=== PATIENT | female | born 1970 | race Caucasian/White ===

== ENCOUNTER 2016-06-08 12:00 | Inpatient (IN) | payer BC ==
[~2016-06-08] VITALS: Ht 170.2 cm; Wt 70.4 kg
--- NOTE | ~2016-06-08 | ECHO ---
Transthoracic Echocardiography Report (TTE) Demographics Patient Name PUSHPA KRUSE Date of Study 06/11/2016 Patient Number [id number] Visit Number [id number] Date of 1970 Room Number G6224 Accession Number [id number] Gender Female Age 45 year(s) Referring Kayode Murry Product Safety Specialist Mandy Henry RVT Physician Physician Interpreting Adry Montelongo Mixer Lever Operator Physician MD Supervising Ordering Physician Kayode Murry MD, MD/P Nurse Stress Beam Builder Conclusions Summary No evidence of atrial septal defect by saline bubble study. Procedure Type of Study TTE procedure:Echo Limited w/ Contrast. Procedure Date Date: 06/11/2016 Start: 02:35 PM Study Location: Inpatient Portable Technical Quality: Fair due to lung interference. Indications:CVA. Patient Status: Routine Signature dtt: Jayda Rider dtd: 06/11/16 1435 Physician Self Edit
--- NOTE | ~2016-06-08 | DS ---
PATIENT'S NAME: PUSHPA KRUSE [facility] AGE: 45 Y [address] ROOM: [address] [address] LOCATION: [facility] ADMIT DATE: 06/08/2016 Discharge Summary DISCHARGE DATE: FAMILY PHYSICIAN: Mague Moran MD ATTENDING PHYSICIAN: Aiden Butt FINAL DIAGNOSES: 1. Cerebrovascular accident with right hemiparesis and left homonymous hemianopsia. 2. Hypercoagulable state secondary to ovarian cancer, positive antiphospholipid antibody. 3. Pulmonary embolism. 4. Right lower extremity deep venous thrombosis. 5. Clear cell ovarian cancer, stage III. 6. New left pleural effusion. 7. Thrombocytopenia. Please see the history and physical dictated by Dr. Butt for details of admission. LABORATORY DATA: On admission, sodium 137, most prior to discharge 138; potassium on admission 4.3, most prior to discharge 4.1; BUN on admission was 14, most prior to discharge 10; creatinine on admission 0.8, most prior to discharge 0.8. Her liver enzymes were normal. LDH drawn on the was 391. Magnesium was 2.2. Cholesterol 181, triglycerides 131, HDL 30. White blood cell count on admission was 9.1 with a hemoglobin of 11, hematocrit 32.3, and platelet count 81. The thrombocytopenia resolved. Platelet count most prior to discharge is 169. D-dimer was 28.52 on the . Sedimentation rate on the was 76. Protime on admission was 11.6 with an INR of 1.1. Her protein C activity and protein C levels, protein S levels were normal. Leiden factor V was negative. The lupus anticoagulant mixing studies were suggestive of a circulating anticoagulant. Her C- and P-ANCA were negative. RADIOLOGY STUDIES: MR venogram protocol was normal. An MRI of her brain on admission did show she had extensive multifocal infarcts bilaterally in the cerebellar and cerebral hemispheres. MRA was suggestive of a small area of narrowing in the distal MCA. There was a cerebral angiogram and was without any nodularity or beading. There was absent left SENIOR ADMINISTRATIVE ASSISTANT circulation. MRI of the brain to reassess the stroke showed overall stability. MRI of the cervical spinal cord did not show any nerve impingement. Chest tomogram did not show any evidence of brachial plexopathy. There, we did see a new left pleural effusion. CTA of the neck did not show any occlusion that was suggestive of PE. This was followed up with a spiral-cut CT with PE protocol, which showed that she had multiple pulmonary emboli, predominantly in the right side. CT scan of the head after initiation of anticoagulation did not show any evidence PATIENT'S NAME: PUSHPA KRUSE [facility] AGE: 45 Y [address] ROOM: [place] [address] LOCATION: [facility] ADMIT DATE: 06/08/2016 Discharge Summary DISCHARGE DATE: FAMILY PHYSICIAN: Mague Moran MD ATTENDING PHYSICIAN: Aiden Butt of a hemorrhagic conversion. Cardiovascular studies: An echocardiogram done on admission showed her EF was 60% to 65%. A JINNY done did not show any evidence of intracardiac vegetation. No evidence of a patent PFO. Bubble study on this was negative. Doppler study of her bilateral lower extremities did show that she had acute DVT of popliteal, posterior tibial, and peroneal veins on the right. HOSPITAL COURSE: The patient was admitted to the hospital after presenting with stroke-like symptoms. She was placed on the non-tPA stroke protocol. Dr. Pedraza was asked to see the patient from a neurologic standpoint. Because of the visual defects, Ophthalmology was asked to see her. She did have stage III clear cell carcinoma of the ovary. Dr. Cory Garcia was asked to follow along from the hematologic standpoint. A JINNY was ordered because of the presentation of her stroke. She was also evaluated for hypercoagulable state. It was concerning that she had multifocal infarcts, so there was concern that she was showering emboli from somewhere. Dr. Pruett did see her from an ophthalmologic standpoint and at this time just recommended that we help prevent dry eyes. Dr. Vera did see her for possible rehab, and he did feel when she was stable that we could proceed to rehab. She was started on an aspirin. Because of the atypical presentation, Dr. Pedraza did feel that we should do an angiogram. This was done by the interventional radiologist on June 10. She tolerated it without any abnormality. Dr. Bonner was asked to see the patient at that point and did evaluate her for some further studies to follow up, to make sure the stroke was stable, look at her brachial plexus to make sure there was nothing there causing issue with her right arm. The studies there did show that she had a pulmonary embolism. This was followed up with a spiral-cut CT scan and a venous Doppler was obtained. We did ask Cardiology to repeat the bubble study once again, which was negative. At this time, we did have long discussion about what would be best. There was concern for hemorrhagic conversion of her stroke with initiation of anticoagulation, but with the PE and DVT, it was felt that there was more indication to anticoagulate her. We did ask Dr. Taveras to consider her for an IVC filter, but the ultimate decision was that we are going to treat her with Lovenox 1 mg/kg. It was very clearly stated to her the risks and benefits of using the anticoagulation and not using the anticoagulation. The family did agree to proceed. A followup CT was done after initiation, which once again showed stability. Neurologically, her symptoms did start to improve. She got more movement in her arm. Also, throughout this, we did find a new left pleural effusion. There was concern that this was a malignant effusion. She did have a thoracentesis by Radiology on June 15. It was in fact transudative and the studies were sent for cytology. The initial cytology returned negative. It was felt that she would benefit significantly from inpatient rehab and a bed became available for transfer to rehab on June 17. DISCHARGE INSTRUCTIONS: Have a regular diet. Weightbearing as tolerated PT, PATIENT'S NAME: PUSHPA KRUSE [facility] AGE: 45 Y [address] ROOM: [place] [address] LOCATION: [facility] ADMIT DATE: 06/08/2016 Discharge Summary DISCHARGE DATE: FAMILY PHYSICIAN: Mague Moran MD ATTENDING PHYSICIAN: Aiden Butt OT, and Speech Therapy to see. MEDICATIONS: 1. Artificial tears 1 drop both eyes 4 times daily. 2. Aspirin 325 mg daily. 3. Lipitor 80 mg daily. 4. Multivitamin daily. 5. Protonix 40 mg daily. 6. Senna 8.6 to 17.2 mg p.o. every night at bedtime. 7. MiraLAX 17 g daily, hold for loose stools. 8. Tylenol 500 to 1000 mg as needed for pain, temp, insomnia. 9. Benadryl 25 mg as needed for insomnia. 10. Tylenol 650 mg every 4 hours as needed. 11. Dulcolax 10 mg suppository per rectum as needed for constipation. 12. Claritin-D 1 tablet daily as needed for allergy symptoms. 13. Milk of magnesia 30 mL as needed for constipation. 14. Percocet 5/325 mg 1 to 2 every 4 hours as needed for moderate pain. 15. Lovenox 1 mg/kg subcu twice daily. PROGNOSIS: Overall prognosis at discharge was fair. GEO TIDWELL MD LAW/modl /[id number] CC: MD Magaly Prather MD d: 06/17/16 0835 t: 06/17/16 1653, DISCHARGE SUMMARY
--- NOTE | ~2016-06-08 | ENPV ---
Vascular Lower Extremities DVT Study Procedure Demographics Patient Name PUSHPA KRUSE Date of Study 06/11/2016 Patient Number [id number] Gender Female Date of 1970 Age 45 Visit Number [id number] Height 67 Accession Number [id number] Weight 148 Referring Kayode Gill MD Physician Physician Physician Ordering Physician Kayode Murry MD Sales Systems Engineer Professor Of Literacy Mandy Henry [facility] Conclusions Summary There is acute deep vein thrombosis in the right popliteal, posterior tibial and peroneal vein(s). No evidence of deep vein thrombosis or superficial thrombophlebitis in the left lower extremity. The right common femoral vein was not well visualized, because of angio incision. Procedure Type of Study: Veins:Lower Extremities DVT Study, Venous Duplex Lower Extremity Bilateral. Indications for Study:Pulmonary embolism. Patient Status:Routine. Study Location:Inpatient Portable. Technical Quality:Adequate visualization. - Preliminary reported to:Dr. Headley. Velocities are measured in cm/s ; Diameters are measured in cm Right Lower Extremities DVT Study Measurements Right 2D and Doppler Measurements + + + + +------+------+ + !Location !Visualized!Compressibility!Thrombosis!Signal!Reflux!Reflux ! ! ! ! ! ! ! !(sec) ! + + + + +------+------+ + !GSV Thigh !Yes !Yes !None !Phasic! ! ! + + + + +------+------+ + !Common !Yes !Yes !None !Phasic! ! ! !Femoral ! ! ! ! ! ! ! + + + + +------+------+ + !Prox !Yes !Yes !None !Phasic! ! ! !Femoral ! ! ! ! ! ! ! + + + + +------+------+ + !Mid Femoral!Yes !Yes !None !Phasic! ! ! + + + + +------+------+ + !Dist !Yes !Yes !None !Phasic! ! ! !Femoral ! ! ! ! ! ! ! + + + + +------+------+ + !Popliteal !Yes !Yes !None !Phasic! ! ! + + + + +------+------+ + !Gastroc !Yes !Yes !None !Phasic! ! ! + + + + +------+------+ + !PTV !Yes !Yes !None !Phasic! ! ! + + + + +------+------+ + !Peroneal !Yes !Yes !None !Phasic! ! ! + + + + +------+------+ + Left Lower Extremities DVT Study Measurements Left 2D and Doppler Measurements + + + + +------+------+ + !Location !Visualized!Compressibility!Thrombosis!Signal!Reflux!Reflux ! ! ! ! ! ! ! !(sec) ! + + + + +------+------+ + !GSV Thigh !Yes !Yes !None !Phasic! ! ! + + + + +------+------+ + !Common !Yes !Yes !None !Phasic! ! ! !Femoral ! ! ! ! ! ! ! + + + + +------+------+ + !Prox !Yes !Yes !None !Phasic! ! ! !Femoral ! ! ! ! ! ! ! + + + + +------+------+ + !Mid Femoral!Yes !Yes !None !Phasic! ! ! + + + + +------+------+ + !Dist !Yes !Yes !None !Phasic! ! ! !Femoral ! ! ! ! ! ! ! + + + + +------+------+ + !Popliteal !Yes !Yes !None !Phasic! ! ! + + + + +------+------+ + !Gastroc !Yes !Yes !None !Phasic! ! ! + + + + +------+------+ + !PTV !Yes !Yes !None !Phasic! ! ! + + + + +------+------+ + !Peroneal !Yes !Yes !None !Phasic! ! ! + + + + +------+------+ + Impressions Right Impression Common femoral vein was not imaged due to angio incision. Superficial femoral vein is widely patent. There is acute DVT in the popliteal, posterior tibial and peroneal veins. Left Impression Common femoral, superficial femoral, and popliteal veins widely patent. Calf veins found to be patent by color flow mapping. Signature dtt: OSCAR SIMON dtd: 06/11/16 1416 Physician Self Edit
--- NOTE | ~2016-06-08 | CON ---
PATIENT'S NAME: PUSHPA WOODWARD [facility] AGE: 45 Y [address] ROOM: [id number] [place], [place] [address] LOCATION: [facility] ADMIT DATE: 06/08/2016 Consultation DISCHARGE DATE: FAMILY PHYSICIAN: Mague Moran MD ATTENDING PHYSICIAN: SIL ALMAZAN REFERRING PHYSICIAN: Vance Bermeo MD Consult to Dr. Almazan. HISTORY OF PRESENT ILLNESS: Pushpa Woodward is a 45-year-old woman with uncharacterized right hemiparesis and impairment of right-sided peripheral vision. She is under treatment for clear cell carcinoma of the ovary. 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 She was in her normal state of health until day 8 of her therapy. She lived in [place], [place] with her . 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 She had no practical limits. On day 8 of her therapy, the patient developed right-sided peripheral vision difficulties. She could not see one of her fourth graders. She reported to the emergency room in [place], [place]. Blood work was obtained. Fluids were administered. Her vision improved. Ondansetron was given for mild nausea. The patient regained her performance status. She was still able to walk a mile twice a day. She was just troubled by clear nasal discharge. She did acknowledge on day 6 she vomited once and on day 7 she had been nauseated. On day 9, the patient's peripheral visual difficulty resolved, but her vision was somewhat annamarie to looking out a "frosted window." This has gradually improved in the last few days. On day 11, the patient developed expressive aphasia, which was transient. Throughout the evening, she had difficulty moving her right arm. She had no difficulty moving her right leg and had led to paresthesias. She had episode of urinary incontinence, which was highly irregular. She put up with the hemiparesis overnight. When the right hemiparesis failed to resolve, she visited with her . Her arranged for her evaluation in the [place] [facility]. In the [place] [facility] a general chemical profile was obtained. The profile was unremarkable except for a slightly elevated alkaline phosphatase. A CAT scan of the head was performed without contrast. It revealed multifocal patchy low attenuation within bilateral occipital lobes and the left cerebellar hemisphere, which was nonspecific, compatible with multiple acute infarcts or posterior reversible encephalopathy syndrome. MRI with and PATIENT'S NAME: PUSHPA WOODWARD [facility] AGE: 45 Y [address] ROOM: [id number] [place], [place] [address] LOCATION: [facility] ADMIT DATE: 06/08/2016 Consultation DISCHARGE DATE: FAMILY PHYSICIAN: Mague Moran MD ATTENDING PHYSICIAN: SIL ALMAZAN without IV contrast was recommended. The patient was transferred to Dr. Almazan's hospitalist service at [facility]. White count is 7000 with 79% neutrophils, hemoglobin 9.9, MCV is 93, and the platelets are 80,000. The INR was 1.1. The PTT is 27. The ESR is 76 mm/hr. The antithrombin III is 103% of activity. CMS here is also remarkable except for slightly low albumin of 3.1 g/dL and a slightly elevated AST and ALT of 54 and 81 International Units/L respectively. The MRI of the brain revealed multiple bilateral areas of diffusion restriction, which do not enhance, consistent with an acute or subacute ischemic infarct in the cerebral and cerebellar hemispheres. There were multiple patchy areas of infarct in the cerebellar hemispheres more prominent on the left than the right and a focal infarct in the left posterior mid brain. There was a large area of infarct 7 cm from front to back present at the right parietotemporal junction. There was [id number] overall patchy infarct in the bilateral occipital lobes. To a lesser extent, there were multiple patchy areas of subcortical and cortical infarcts in the parietal and frontal lobes. On the right side, the posterior insular cortex was involved. On the left side, there was a small infarct at the posterior external capsule and the small infarct of the posterior lateral left thalamus. There was no hemorrhage, mass effect, or hydrocephalus and the orbits and sinuses were normal. A brain magnetic resonance angiogram of the head without contrast revealed small areas of narrowing within the distal middle cerebral artery branches in the sylvian fissure on both sides. There was absence of flow related signal within the distal left posterior circulating area. The multifocal nature coupled with the brain MRI raised the possibility of vasculitis. The lupus anticoagulant, anticardiolipin antibodies, anti-beta-2 glycoprotein, protein C, protein S, factor V Leiden levels are currently pending. Mrs. Woodward is currently under therapy for clear cell carcinoma of the ovary, but has no personal or family history of thrombophilia. Mrs. Woodward was first symptomatic with her ovarian cancer in early October 2015 with abdominal pain and fever. She reported to the clinic in [place] and saw Maritza Miller PA-C. A CBC and BMP were unremarkable. A CT scan of the abdomen and pelvis to rule out appendicitis was performed and revealed a complex cystic-appearing structure and peripheral calcification on the right side. There was small free fluid throughout the right adnexa. A pelvic ultrasound was scheduled and the patient saw Dr. April Buckley in consultation on 10/30/2015. The pelvic ultrasound revealed a normal uterus, but the right ovary was 5.9 cm with solid and cystic components on the transvaginal ultrasound. The physical exam including pelvic exam was not revealing. A CA-125 was 55 U/L. Dr. Buckley discussed the differential PATIENT'S NAME: PUSHPA WOODWARD [facility] AGE: 45 Y [address] ROOM: [place] [address] LOCATION: [facility] ADMIT DATE: 06/08/2016 Consultation DISCHARGE DATE: FAMILY PHYSICIAN: Mague Moran MD ATTENDING PHYSICIAN: SIL ALMAZAN and on 11/05/2015, performed removal of the ovary. The uterus was normal. The left tube and ovary were unremarkable. The right fallopian tube was unremarkable. The right ovarian mass was 6 cm with a large amount of chocolate colored fluid in the solid component. There was no omental studding, ascites and palpation of the liver was unremarkable. The pathologist concluded the patient had a FIGO grade 3/3 clear cell carcinoma in the right ovary. In the fallopian tube, there was small focal subserosal endometriosis. On 11/18/2015, the patient saw Dr[facility] Brandie [facility]. Chou weighed the pros and cons of surgery or neoadjuvant chemotherapy followed by a definitive surgical approach. Dr. Chou recommended neoadjuvant chemotherapy. The patient saw a Dr. Princess Cosme in Medical Oncology consultation. Dr. Cosme recommended and implemented a program of neoadjuvant chemotherapy. The patient received paclitaxel 175 mg/m2 plus carboplatin AUC 6 IV every 3 weeks for 6 cycles. The first cycle was administered 11/29/2015 and the last on 03/26/2016. The patient saw Dr. Chou again following administration of the neoadjuvant chemotherapy. Dr. Chou reviewed her situation on 04/17/2016 and reviewed a CAT scan of the abdomen and pelvis and chest, which revealed a 2.3 x 1.5 cm cystic lesion in the right adnexa at the site of the previous mass, but was otherwise unremarkable. The CA-[address] Chou recommended, and then performed, on 04/28/2016, an exploratory laparotomy, total abdominal hysterectomy, left salpingo-oophorectomy, right tumor resection, right ureterolysis and bilateral pelvic and paraaortic lymph node dissection and omentectomy. The pathology revealed the tumor excised from the right round ligament contained clear cell carcinoma. The left tube and ovary had surface and focal parenchymal involvement by clear cell carcinoma. The fallopian tube had no tumor. The uterus and cervix were benign. The omentum had small microscopic foci of clear cell carcinoma. In the lymph nodes, there were 7 negative right pelvic lymph nodes and 16 negative left pelvic lymph nodes, and 1/3 of the paraaortic lymph nodes were positive for metastatic clear cell carcinoma. Dr. Chou and Dr. Cosme presumed the goals were palliative at this point, and acknowledged this was bad news. Dr. Cosme weighed the pros and cons of salvage palliative chemotherapy and on 05/28/2016, initiated the first cycle of liposomal doxorubicin. The patient received palonosetron 0.25 mg and dexamethasone 20 mg IV prior to the therapy. PAST MEDICAL HISTORY: Active medical problems, chronic and diagnosed. 1. Cholinesterase deficiency. A cousin developed postoperative complications due to this and so family members were tested and the PATIENT'S NAME: PUSHPA WOODWARD [facility] AGE: 45 Y [address] ROOM: [place] [address] LOCATION: [facility] ADMIT DATE: 06/08/2016 Consultation DISCHARGE DATE: FAMILY PHYSICIAN: Mague Moran MD ATTENDING PHYSICIAN: SIL ALMAZAN patient has a cholinesterase deficiency. 2. Stage III clear cell carcinoma of the ovary as noted above. PAST SURGICAL HISTORY: Acute medical illnesses (resolved), past surgeries, injuries: 1. 1981, right forearm fracture. 2. 2004 - left breast biopsy. 3. G0, P0, AB0. MEDICATIONS: Upon admission: 1. Loratadine/pseudoephedrine 1 tab p.o. daily. 2. Multivitamins daily. 3. Pantoprazole 40 mg daily p.o. daily. 4. Senna 8.6 mg p.r.n. 5. APAP/diphenhydramine. The patient denies the use of herbals or alternative. ADVERSE REACTIONS TO MEDICATIONS, TRANSFUSIONS, ALLERGIES: 1. Clindamycin was associated with dyspnea. 2. The patient has never had blood transfusions. Tobacco none. Alcohol, 2 alcoholic beverages a month. Caffeine 3 to 4 cups of ice tea a day, perhaps 1 soda a day as well. FAMILY HISTORY: Negative for thrombophilia, really negative for cancer. The patient was tested for the BRCA mutation which was not found, but had chek2 mutation, significance undetermined. The maternal aunt did of cancer. SOCIAL HISTORY: The patient was born and raised in [place], [place]. She graduated from [employer]. 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 The patient has no children. She is . Her is a contractor. They attend the [employer]. REVIEW OF SYMPTOMS: Negative other than those noted in the history of the present illness. PHYSICAL EXAMINATION: VITAL SIGNS: Pulse 92 and regular, blood pressure 120/75, respiratory rate 14, temperature 98.4. Height 67 inches, weight 67.4 kg (149 pounds). BMI 23.2 kg/m2. GENERAL: Well-developed, well-nourished 45-year-old female, in no PATIENT'S NAME: PUSHPA WOODWARD [facility] AGE: 45 Y [address] ROOM: [address] [address] LOCATION: [facility] ADMIT DATE: 06/08/2016 Consultation DISCHARGE DATE: FAMILY PHYSICIAN: Mague Moran MD ATTENDING PHYSICIAN: SIL ALMAZAN acute distress. HEENT: Unremarkable. Lymph nodes not palpable. NECK: Without JVD or carotid bruits. SKIN: Unremarkable. BREASTS: Not examined as the family was in the room. CHEST: Clear. Chest wall left implanted vascular access device. CV: Regular rhythm. No murmurs, bruits or adventitious sounds. ABDOMEN: Well-healed surgical scar. No masses, tenderness, or organomegaly. GENITALIA AND RECTAL: Not examined. EXTREMITIES: Without peripheral edema. Pulses 2+ throughout. NEUROLOGIC: Cranial nerves 2 through 12 intact. Deep tendon reflexes 1+ throughout. Strength 5+ on the left side. The right arm strength is 3/5. Babinski is plantar on the left side and upgoing on the right. Visual pereira, the patient does appear to have difficulty with left-sided homonymous hemianopia. IMPRESSION: A 45-year-old woman with acute onset of left homonymous hemianopia and right arm weakness associated with expressive aphasia, positive left-sided Babinski and no focal lesions on noncontrasted CAT scan, but multiple infarcts on MRI of the brain. 1. The patient has a history of clear cell carcinoma of the right ovary, status post right oophorectomy, neoadjuvant chemotherapy, and then palliative procedure with PAWAN and left unilateral salpingo-oophorectomy on 04/28/2016 (performed with curative intent initially). She is currently on day 12 of her first cycle of pegylated liposomal doxorubicin. 2. We have ruled out [employer] metastases and a hemorrhagic CVA and a simple ischemic CVA. The presentation is not consistent with [employer] paraneoplastic syndromes I have seen described. 3. The echocardiogram revealed no evidence of a patent foramen ovale, atrial or ventricular septal defect or vegetations. There is no clear etiology, at present, in this 45-year-old woman, who has been disabled by this incident. 4. Nonbacterial thrombotic endocarditis must still be possible. False negatives have occurred, presumably if vegetations of already migrated en danielle to the PLUMBING [employer]OR. Sometimes NBTE is an autopsy diagnosis with a normal transthoracic echocardiogram. That being said, it seems unsatisfactory to conclude the patient has nonbacterial thrombotic endocarditis without more conclusive evidence. 5. Vasculitides have been associated with ovarian cancer. However, this is generally a cutaneous small vessel vasculitis. RECOMMENDATIONS: Diagnostic: PATIENT'S NAME: PUSHPA WOODWARD [facility] AGE: 45 Y [address] ROOM: [place] [address] LOCATION: [facility] ADMIT DATE: 06/08/2016 Consultation DISCHARGE DATE: FAMILY PHYSICIAN: Mague Moran MD ATTENDING PHYSICIAN: SIL ALMAZAN 1. Blood cultures. 2. MAUREEN. 3. Izus-nvvg-NH glycoprotein in addition to the lupus anticoagulant and anticardiolipin antibodies. TREATMENT: 1. Aspirin initially and consider full anticoagulation when the patient would no longer be at risk of converting this ischemic infarct to a hemorrhage. PATIENT EDUCATION: 1. Acknowledged it is not clear why she had this episode, but discussed the differential diagnosis. Made the point we do not think this is related to her antineoplastic agents or other medications. We will be interested in the neurologist's opinion. VANCE BERMEO MD GKB/modl /[id number] CC: MD April Stanton MD Jeffery W McKinley, DO d: 06/10/16 0154 t: 06/10/16 1644, CONSULTATION REPORT
--- NOTE | ~2016-06-08 | CON ---
PATIENT'S NAME: PUSHPA KRUSE [facility] AGE: 45 Y [address] ROOM: [address] [address] LOCATION: [facility] ADMIT DATE: 06/08/2016 Consultation DISCHARGE DATE: FAMILY PHYSICIAN: Mague Moran MD ATTENDING PHYSICIAN: SIL ALMAZAN REFERRING PHYSICIAN: Cory Garcia MD Consult for Dr. Almazan. This pleasant 45-year-old lady is referred for rehab evaluation for [facility] ERP admission, admitted on 06/08/2016 with blurred vision, right hemianopsia of few days' duration and getting progressively worse with on and off periods of getting a little bit better as per her description. She eventually had weakness of the right upper extremity and was unable to express, bring out words, and was brought to emergency room and was admitted for further evaluation and management. Past history of significance right ovarian cancer with metastasis to the left ovary and omental lymph nodes, status post bilateral salpingo-oophorectomy and total abdominal hysterectomy. Diagnosis was done in October 2015. She has received chemotherapy, but no radiation treatment received. One chemotherapy every 4-5 weeks. Her main blurred vision is on the right side, both eyes. She felt right upper extremity weakness, at the present time it is flaccid. Right lower extremity is moving fairly nicely with good muscle strength, however, she is not very well coordinated with it. She is a little bit now able to talk, however at 1 time, she was having difficulty with expressive language. She is slow in her expression but proper. She was seen in outside facility where a CT scan reported as patchy low attenuation within bilateral occipital lobes and left cerebellar hemisphere. MRI showed multifocal extensive infarcts bilaterally in cerebellar hemispheres and possibly vesiculitis was put forward as an alternative diagnosis. Now, she is alert, oriented, slow, but follows instructions well. Can talk. Speech is clear, but a little bit slow and she is still having difficulty with the right hemianopsia. She has visual cut on the right side, visual neglect, right side upper extremity is flaccid at the present time. She has good bowel and bladder control and she is saturating at room air. Denied any pain and/or headaches. PATIENT'S NAME: PUSHPA KRUSE [facility] AGE: 45 Y [address] ROOM: [id number] [place], [place] [address] LOCATION: [facility] ADMIT DATE: 06/08/2016 Consultation DISCHARGE DATE: FAMILY PHYSICIAN: Mague Moran MD ATTENDING PHYSICIAN: SIL ALMAZAN No shortness of breath at the present time and is comfortable. Can swallow without difficulty both solids and fluids. MEDICATIONS: She is on the following medications: 1. Artificial tears. 2. Lipitor. 3. Multivitamin. 4. NaCl 0.9%. 5. Tylenol. 6. Senna. 7. Claritin D. 8. Protonix. 9. Aspirin. 10. Lovenox. She transfers with contact guard assistance and is at risk of falling. She can ambulate up to 80 feet with minimum assistance with cuing to attend to the right side. I feel that this lady would benefit from intensive rehab for about 2-3 weeks aiming to discharge home at [facility]. Please see the orders at the present time for PT, OT, and speech. Thank you for this referral. I did discuss all these with her and her , they verbalized understanding and in agreement. KARIE HINOJOSA MD WMS/modl /[id number] d: 06/09/16 2328 t: 06/10/16 0821, CONSULTATION REPORT
--- NOTE | ~2016-06-08 | CON ---
PATIENT'S NAME: PUSHPA KRUSE [facility] AGE: 45 Y [address] ROOM: [address] [place] [id number] LOCATION: T ADMIT DATE: 06/08/2016 Consultation DISCHARGE DATE: FAMILY PHYSICIAN: PHYSICIAN, UNKNOWN ATTENDING PHYSICIAN: SIL ALMAZAN DATE OF CONSULTATION: 06/08/2016 REFERRING PHYSICIAN: Cory Garcia MD NEUROLOGY CONSULTATION. REASON FOR CONSULTATION: The patient was seen on neurologic consultation at 9:30 p.m. on June 08, 2016, at the request of Dr. Almazan, the hospitalist. HISTORY OF PRESENT ILLNESS: The patient was transferred here from [place], [place], this evening. She is a 45-year-old female patient, who previously was healthy until she presented with abdominal pain back in October of 2015. Workup for her persistent abdominal pain discovered an ovarian tumor mass, which required surgical resection of one ovary. 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 Subsequent to the discovery of this mass and chemotherapy, the patient did have recurrence of tumor in the other ovary, and this also had to be removed. Over the course of the next few months, it was found that there was spread of the ovarian mass throughout the omentum, and she continued with rounds of chemotherapy up until fairly recently. Throughout the whole in the past few months, there have been no systemic issues involving any deep vein thrombosis or other regional clots. She had one time been on Lovenox for DVT prophylaxis but recently had been off the medication. It has been noted that she presents here with a low platelet count into the 80s range, and it is believed that she may have had some low platelet count for quite sometime. The patient initially presented to the [facility] back on about 4 days ago. At that time, she was complaining about a bit of some mild nauseousness with perhaps a bit of peripheral vision loss with some minor blurriness. Peripheral vision loss seemed to have been more on the right side of her visual field but did seem to be a bit also bilaterally. Apparently, they believed that she was having some dehydration, and they gave her fluids as well as Zofran for some mild nauseousness, and the patient was sent home. Apparently, at the hospital there, she was conversing well and really was not having any other major issues such as headache, vomiting, certainly was not having any weakness of the extremities. I am not aware if the patient had a CAT scan of the brain at that time. 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 However, this morning at 6:00 a.m. upon getting up to walk around, she noted that she had weakness in her right upper extremity. Right upper extremity was fairly flaccid. Also noted was some worsening of PATIENT'S NAME: PUSHPA KRUSE [facility] AGE: 45 Y [address] ROOM: [address] [address] LOCATION: [facility] ADMIT DATE: 06/08/2016 Consultation DISCHARGE DATE: FAMILY PHYSICIAN: PHYSICIAN, UNKNOWN ATTENDING PHYSICIAN: SIL ALMAZAN her speech where she presented now with a bit of slurring of her speech and possibly even some difficulty with word finding. She was taken back to [facility] where she was evaluated there with a CAT scan. The CAT scan did reveal evidence of bilateral strokes into the TORPEDO MAN territory but also evidence of multifocal strokes in both the left and the right hemispheres, and into the anterior and posterior circulations, even including the cerebellum. The patient was thus transferred here for further workup. We immediately had the patient brought in for an MRI of the brain as well as an MRA. Furthermore, we added an MR venogram to rule out any possibility of venous sinus thrombosis as the history of ovarian cancer was known to us, and we want to rule out the possibility of venous cortical clots. The result of the MRV did not reveal any venous cortical sinus thrombosis; however, the MRI backed up the CAT scan at [facility] showing both left and right hemispheric strokes with the larger stroke actually being in the right TORPEDO MAN territory. The strokes were noted to summon more moderate sizes into both hemispheres, and with even strokes noted with even diffusion-weighted imaging findings seen in the cerebellar hemispheres, thalami, as well as some small subcortical strokes were seen in the bilateral hemispheres, both cortical and subcortical. MRA did show multifocal small occlusions of vessels of arterial vessels, mostly in the distal nature to them with some, but one or two appeared to be more proximal in nature. Due to the nature of these MRA findings, the radiologist suggested the possibility of vasculitis. The differential certainly at this point in time would include vasculitis. However, with further discussions with myself and the hospitalist, largely I recommended, before the patient was to be considered for vasculitic type process that, we would rule out that these findings are associated with a cardioembolic feature knowing that the patient has a clear cell ovarian cancer, and the nature of clear cell ovarian cancer becoming hematogenous and possibly causing marantic endocarditis, the possibility of these multifocal strokes with many of them being fairly large would be coming from an origin of vegetations on the valves. Thus, at this point in time, we have consulted Cardiology, and there will be plans tomorrow for transesophageal echocardiogram. Furthermore in the workup, we will do full panel to give us some evidence for hypercoagulable state, though certainly, the patient with metastatic ovarian cancer, would be known to be hypercoagulable, but laboratory results have been ordered for protein C, protein S, anti-phospholipid antibodies including lupus anticoagulant and anticardiolipin as well as labs for factor V Leiden, antithrombin III, and some basic vasculitic labs including ESR, CRP, and P-ANCA. PRIOR MEDICAL HISTORY: No prior medical history of significance other than the diagnosis of ovarian cancer back in October of 2015. She has received [place]-based chemotherapy of a few rounds up until recently. The patient has no history of DVTs or systemic thrombotic events. PATIENT'S NAME: PUSHPA KRUSE [facility] AGE: 45 Y [address] 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 She does not smoke cigarettes. She does not use illicit drugs. CURRENT MEDICATIONS: None, though I believe that she was on subcu Lovenox for DVT treatment up until recently. My history is not consistent with any ovarian cancer or breast cancer in brief discussions with the patient. REVIEW OF SYSTEMS: The patient had about 4 to 5 days of variable blurriness of her vision with likely field cut, consistent with the findings of bihemispheric strokes into the TORPEDO MAN territory, as well as new strokes, particularly into the left hemisphere, associated with new onset of right hemiparesis, affecting the right upper extremity only. The patient also had some slurring of speech this evening. This seems to be resolved at this time. NEUROLOGIC EXAMINATION: CRANIAL NERVES: Pupils are equal and reactive to light and accommodation. Extraocular muscles intact. There is no facial droop. There is slight slowing of her speech as it is very variable. She seems to be worsened when she is a bit tired. She has some minor word-finding deficits, but naming of objects and parts of objects seem to be intact. MOTOR: Her motor power in her left upper and lower extremities, full power in the right lower extremity, also full power in the right upper extremity, there is flaccid paralysis of her limb. She can elevate the limb about 5 seconds above the bed, but it drops easily. The grade of power is around 3/5 presently. Power in dorsiflexion plantar flexion, eversion, inversion of the feet are all normal. The patient was not ambulated currently. SENSORY: Completely intact. Cortical stimulation to right and left discrimination is completely intact. Sensory exam to light and sharp touch is intact. IMPRESSION: The patient presents with a few days of visual obscuration with a variable periods of a field cut, both right and left. There has been some improvement and some worsening of her field cut complaints over the past 48 hours. She denied any headaches over the past few days. There has been no nauseousness. No vomiting. No sensory loss. She did not have any focal motor weakness in total. She presented this morning until she developed a focal arm weakness with flaccid paralysis. Her lower extremity power remained intact. The patient was initially sent back to [facility] where a CAT scan showed evidence of multifocal bihemispheric strokes, and she was sent here for further workup. PATIENT'S NAME: PUSHPA KRUSE [facility] AGE: 45 Y [address] ROOM: [place] [address] LOCATION: [facility] ADMIT DATE: 06/08/2016 Consultation DISCHARGE DATE: FAMILY PHYSICIAN: PHYSICIAN, DALTON ATTENDING PHYSICIAN: SIL ALMAZAN Based upon the findings of fairly mixed sizes of strokes, we will obtain a transesophageal echocardiogram tomorrow. We will also give the patient one treatment dose of Lovenox 1 mg/kg due to the fact that this is a possibly an active type process from embolization. We have no proof currently, however, until we do have an echocardiogram to prove this, nonetheless, the nature of clear cell ovarian cancer has close association with marantic endocarditis, seems to be a leading issue here for embolic strokes. I do believe that vasculitis would be a secondary consideration, but this would seem to be less of a chance due to the nature of these being very mixed size strokes and in multiple large territory vessels. Certainly, the nature of the beading of some of the vessels seen in the distal portions of these vessels may fit that pattern. Nonetheless, the patient does not have more typical presentation of vasculitis as such as change in mental status, seizure presentation. I had discussions with multiple family members as well as the patient. I discussed the use of the anticoagulant this evening, even in the setting of known of the known low level of platelet count above 50, but certainly, the possibility that the anticoagulation would be a risk for bleeding. Nonetheless, the pattern is suggestive of multifocal embolic strokes. The ultimate treatment if this were proven to be marantic endocarditis would ultimately be anticoagulation to stabilize the situations of new emboli to not form. The patient overnight will be receiving normal saline IV fluids at 150 mL an hour to maintain intravascular perfusion of the brain. After the first dose of Lovenox, we will hold the treatment for preparation for transesophageal echocardiogram. The patient will be n.p.o. tonight. CLARITA LARSON MD JRM/modl /[id number] d: 06/09/16 0242 t: 06/23/16 1534, CONSULTATION REPORT
--- NOTE | ~2016-06-08 | ECHO ---
Transesophageal Echocardiography Report (JINNY) Demographics Patient Name PUSHPA KRUSE Date of Study 06/09/2016 Patient Number [id number] Visit Number [id number] Date of 1970 Room Number G6224 [facility] [id number] Gender Female Number Age 45 year(s) Referring Miryam Commercial Truck Driver Maria M Doss RDCS, Physician Martell RVKera Physician Interpreting Miryam Moura Chummer Physician Supervising Ordering Miryam Moura MD/LEE Physician Nurse Stress Silver Steward Conclusions Summary Transesophageal echocardiogram was done under general anesthesia without difficult probe placement . The estimated left ventricular ejection fraction is 60-65%. There is moderate plaque seen in the descending thoracic aorta. No obvious intracardiac vegetation There is no LA or LA appendage thrombus or spontaneous contrast. Catheter seen in the right atrium. Normal mitral valve structure and function. Mild mitral regurgitation by color Doppler. Normal appearing tricuspid valve. Mild tricuspid regurgitation by color Doppler. Procedure Type of Study JINNY procedure Procedure Date Date: 06/09/2016 Start: 09:46 AM Study Location: Inpatient Portable Technical Quality: Adequate visualization Indications:CVA. Appropriate Use Criteria: 9 Patient Status: Routine HR: 92 bpm BP: 131/71 mmHg O2 Saturation: 92 % JINNY Performed By: the attending and the manager marketing sales Type of Anesthesia: Moderate sedation Findings Left Ventricle The left ventricle is normal in size . Right Ventricle Normal right ventricular size and function. Left Atrium There is no LA or LA appendage thrombus or spontaneous contrast. Right Atrium Catheter seen in the right atrium. Mitral Valve Normal mitral valve structure and function. Mild mitral regurgitation by color Doppler. Aortic Valve Normal aortic valve structure and function. Tricuspid Valve Normal appearing tricuspid valve. Mild tricuspid regurgitation by color Doppler. Pulmonic Valve Normal pulmonic valve structure and function. Miscellaneous There is moderate plaque seen in the descending thoracic aorta. Signature dtt: MARTELL CRUZ dtd: 06/09/16 0946 Physician Self Edit
--- NOTE | ~2016-06-08 | CON ---
PATIENT'S NAME: P[facility]PA [facility] AGE: 45 Y [address] ROOM: [address] [address] LOCATION: [facility] ADMIT DATE: 06/08/2016 Consultation DISCHARGE DATE: FAMILY PHYSICIAN: Mague Moran MD ATTENDING PHYSICIAN: SIL ALMAZAN DATE OF CONSULTATION: 06/10/2016 REFERRING PHYSICIAN: Cory Garcia MD CHIEF COMPLAINT: History of metastatic ovarian cancer, blurred vision, multiple cerebellar, cerebral infarcts, query vasculitis. CLINICAL HISTORY: The patient is an unfortunate 45-year-old female patient, who was diagnosed in October 2015 to have ovarian cancer. The patient was started on chemotherapy and she has been following with Dr. Cosme. According to the patient and her , the patient started complaining of blurred vision last week. She was taken to the emergency in [place]. It was thought that the patient has dehydration. She was treated for that with intravenous fluid and Zofran. Her symptoms slightly improved, and the patient was discharged home. Subsequently, the patient's symptoms recurred and on Wednesday, the patient developed significant weakness on the right hand. The patient's contacted Dr. Garcia's office and the patient was admitted to the hospital for further investigations. The patient initially had a noncontrast CT head and that showed abnormal hypodense area within the right temporal region. She then had a brain MRI and that showed multiple infarcts involving the right temporal lobe, the cerebellum, the mid brain, and the frontal lobes. The patient then underwent further investigations including transesophageal echocardiogram which was negative for cardiac thrombi. She also had a formal cerebral angiogram and that was negative for vasculitis. She also had a brain MRV and that was negative for sinus venous thrombosis. I was contacted by Dr. Pedraza to assess the patient for possibility of vasculitis related strokes. I met the patient and her on the Neuro Trauma Unit. Her confirmed the history. At the time of the encounter, the patient reported blurred vision, especially to the left eye field. She also reported significant weakness on her right hand. She denied headaches. The patient denied any trauma prior to the onset of her symptoms. She denied chiropractor manipulation. PAST MEDICAL AND SURGICAL HISTORY: Right ovarian cancer with lymph node metastasis. Status post total abdominal hysterectomy and bilateral salpingo-oophorectomy. [facility]GE: 45 Y [address] ROOM: [place] [address] LOCATION: [facility] ADMIT DATE: 06/08/2016 Consultation DISCHARGE DATE: FAMILY PHYSICIAN: Mague Moran MD ATTENDING PHYSICIAN: SIL ALMAZAN REVIEW OF SYSTEMS: All points review of systems were asked about. Pertinent positives were mentioned. ALLERGIES: CLINDAMYCIN. SOCIAL HISTORY: She denies alcohol drinking and smoking. FAMILY HISTORY: Noncontributory to the patient's presentation. PHYSICAL EXAMINATION: GENERAL: The patient was cooperative and pleasant. HEAD: Atraumatic. NECK: No tenderness to palpation. No palpable masses. Neck range of motion was full and painless. RESPIRATORY: She was not in any respiratory distress. CARDIOVASCULAR: She has strong pulses on the upper and lower extremities. NEUROLOGIC: She was alert and oriented to time, place, and person. She named 3/3 objects and followed 1 and 2 step commands. The pupils were 3 mm and reactive. Visual field examination showed evidence of left homonymous hemianopsia. Eye movements were full. No evidence of nystagmus. Face was symmetric. Tongue protrusion was in the midline. Motor examination on the upper and lower extremities showed severe weakness on the right hand. Right wrist extension was 0/5, right hand diamond die driller was 0/5, right finger extension at the MCP joint was 0/5. Right elbow flexion was 4/5, right elbow extension was 4/5. Right deltoid was 5/5. Sensory examination was normal on the upper and lower extremities. No evidence of clonus. Rea and Babinski signs were negative. GAIT: Not done. BACK: Not done. MUSCULOSKELETAL: No evidence of muscle wasting. MOUTH AND THROAT: No mucosal lesions. INVESTIGATIONS: 1. Brain MRI done on June 08, 2016. The MRI did show multiple areas of restricted diffusion involving the right temporal lobe, right occipital lobe, left occipital lobe, cerebellum, midbrain, right and left frontal lobes. No evidence of contrast enhancement. 2. MRA brain that was negative for vessel occlusion. 3. MRV brain and that was negative for sinus venous thrombosis. 4. Formal cerebral angiogram, that was negative for the abnormalities in the cortical blood vessels to suggest vasculitis. [facility] AGE: 45 Y [address] ROOM: [address] [address] LOCATION: [facility] ADMIT DATE: 06/08/2016 Consultation DISCHARGE DATE: FAMILY PHYSICIAN: Mague Moran MD ATTENDING PHYSICIAN: SIL ALMAZAN 5. Transesophageal echo and that was negative for cardiac thrombi. IMPRESSION AND PLAN: A 45-year-old female patient, who is presenting with blurred vision and dense right hand weakness. It was found on imaging to have multiple infarcts involving the right temporal and occipital lobes, left occipital lobe, right and left frontal lobes. Her investigations were negative so far for cardiac thrombus. She also had a formal cerebral angiogram and that was negative for abnormalities in the cortical blood vessels to suggest vasculitis. The etiology of those strokes not yet determined. RECOMMENDATIONS: 1. CT angiogram aortic arch to the skull base to assess for any thrombi in the aortic arch or the cervical carotid arteries, vertebral arteries. 2. Repeat brain MRI on June 11, 2016 to reassess the stroke. 3. MRI cervical spine to assess the cause of the right hand weakness. 4. MRI right brachia plexus to rule out brachia plexus pathology. I have reviewed the imaging with the patient's family and pointed out the abnormalities. I clearly indicated that the MRI does show evidence of multiple infarcts. Based on the MRI appearance, I think the patient had a thromboembolic event that resulted in the multiple strokes. Unfortunately, all the investigations were negative so far for thrombus in the heart. I then discussed my plan with the patient. I clearly indicated that further investigations are needed to completely rule out the thromboembolic event. The patient was already seen by the oncologist who feels that those infarcts are unlikely related to the ongoing chemotherapy. The patient's family asked appropriate questions and those were answered to their satisfaction. It was pleasure taking care of this patient and thanks for having us involved. JOSE LUIS NAIR MD AB/modl /[id number] CC: MD Magaly Hodgson MD Chung Chen, MD Glenda M Dean, MD PATIENT'S NAME: P[facility]PA [facility] AGE: 45 Y [address] ROOM: [address] [address] LOCATION: [facility] ADMIT DATE: 06/08/2016 Consultation DISCHARGE DATE: FAMILY PHYSICIAN: Mague Moran MD ATTENDING PHYSICIAN: SIL ALMAZAN MD d: 06/11/16 0412 t: 06/13/16 1224, CONSULTATION REPORT
--- NOTE | ~2016-06-08 | HP ---
PATIENT'S NAME: PUSHPA [facility]USE [facility] AGE: 45 Y [address] ROOM: [address] [address] LOCATION: [facility] ADMIT DATE: 06/08/2016 History & Physical DISCHARGE DATE: FAMILY PHYSICIAN: PHYSICIAN, UNKNOWN ATTENDING PHYSICIAN: SIL ALMAZAN DATE OF SERVICE: CHIEF COMPLAINT: On and off blurry vision in both eyes and right upper extremity weakness. HISTORY OF PRESENT ILLNESS: This is a 45-year-old female with past medical history remarkable for right ovarian cancer with metastasis to the left ovary and also to the lymph nodes and omentum status post bilateral salpingo-oophorectomy and total abdominal hysterectomy. This was diagnosed in October 2015. She never received radiation but she is currently on chemotherapy. She gets one chemotherapy session once every 4-[address] Cosme as the primary oncologist. She says that since last , she suddenly felt this right side homonymous hemianopsia in both eyes that lasted for few hours and she went to the emergency room of an outside facility and over there, she was given IV fluids and IV Zofran and her vision somehow improved back to normal. She was sent home without having any imaging test performed at that time. When she went home, later that night, she was having blurry vision in both eyes. She tried to ignore it and went to bed. For the next few days, last Wednesday, last Wednesday, and yesterday her blurry vision still persisted but somehow was getting better. So, she did not go to any emergency room or any physician for evaluation. It was until last night when she started developing this on and off slurred speech and difficulty getting words out of her mouth and also right upper extremity weakness which is new. This was also noticed by her family member last night. She did not go to any ER or any physician. Today, her symptoms persisted with blurry vision in both eyes and right upper extremity weakness. Therefore, the patient went to the emergency room at an outside facility and a CT of the head was performed and that showed patchy low attenuation within the bilateral occipital lobes in the left cerebellar hemisphere. This finding is nonspecific and likely represents either posterior reversible encephalopathy syndrome or multiple acute infarcts. Brain MRI without and with IV contrast is recommended. Therefore, the patient was sent over here for higher level of care. The patient came from in [place]. REVIEW OF SYSTEMS: As mentioned in the history of present illness. All other systems reviewed and negative except those mentioned in history of present illness. PATIENT'S NAME: PUSHPA KRUSE [facility] AGE: 45 Y [address] ROOM: [address] [address] LOCATION: [facility] ADMIT DATE: 06/08/2016 History & Physical DISCHARGE DATE: FAMILY PHYSICIAN: PHYSICIAN, UNKNOWN ATTENDING PHYSICIAN: SIL ALMAZAN PAST MEDICAL HISTORY: 1) Right ovarian cancer with mets to the left ovarian cancer and the lymph nodes and omentum diagnosed in October 2015 status post total abdominal hysterectomy with bilateral salpingo-oophorectomy, currently undergoing chemotherapy. Followed by Dr. Cosme. She never received radiation. ALLERGIES: SHE HAS ALLERGY TO CLINDAMYCIN ACCORDING TO THE PATIENT WHICH GIVES HER SHORTNESS OF BREATH. HOME MEDICATION: Currently is been reconciled. SOCIAL HISTORY: She denies any alcohol or cigarette or illegal drug use. FAMILY HISTORY: No family history of ovarian cancer in the family. Mother has hypertension. Father from some kind of heart problem in his 70s. Her father also had diabetes. PAST SURGICAL HISTORY: Total abdominal hysterectomy and bilateral salpingo-oophorectomy from her metastatic bilateral ovarian cancer. PHYSICAL EXAMINATION: VITAL SIGNS: At the time of my dictation, temperature 98, blood pressure 130/80, heart rate 86, respirations 14, saturation 100% on room air. GENERAL APPEARANCE: Alert and oriented x3, in no acute distress. HEENT: Pupils equally round and reactive to light. Extraocular muscles intact. Nasal turbinates are normal bilaterally. Moist oral mucosa. No oral thrush. NECK: No JVD. No cervical lymphadenopathy. No neck stiffness. CARDIOVASCULAR: Regular rate and rhythm. Normal S1, S2. No murmur. No rubs, no gallops. RESPIRATORY: Clear. Chest wall nontender to palpation. ABDOMEN: Soft, a little bit rigid on my palpation but nontender, she said this is chronic. No mass. Bowel sounds present. No hepatosplenomegaly. No abdominal rigidity. No rebound tenderness. Bowel sounds present. EXTREMITIES: No edema in upper or lower extremities. NEUROLOGIC: Alert and oriented x3. No slurred speech. No facial droop. Pronator drift positive on the right side due to the right upper extremity weakness. Muscle weakness 2 to 3 out of 5 on the right upper extremity. Sensation intact. Except the right upper extremity weakness, all other parts PATIENT'S NAME: PUSHPA [facility]USE [facility] AGE: 45 Y [address] ROOM: [id number] [place], [place] [address] LOCATION: [facility] ADMIT DATE: 06/08/2016 History & Physical DISCHARGE DATE: FAMILY PHYSICIAN: PHYSICIAN, UNKNOWN ATTENDING PHYSICIAN: SIL ALMAZAN of the body have intact muscle strength. Proprioception and vibration intact. Msdpws-mx-xtea and vzvf-cd-wahv intact. Babinski positive on both sides. Deep tendon reflex +2 at the knees and also at the biceps areas bilaterally. Gait not assessed due to fall risk. She has blurry vision in both eyes. Sometimes, she can tell me how many fingers I showed her in each quadrant but sometimes, she cannot read how many fingers in each visual field quadrant. No nystagmus. No tongue deviation upon protrusion. SKIN: No ulcer, no rash, no cyanosis. MUSCULOSKELETAL: No joint pain. No muscle pain. Right upper extremity weakness, 3/5 intensity. LABORATORY DATA: Laboratory data from the outside facility today showed an ALT 76, AST 52, GFR 84, alkaline phosphatase 108, glucose 121, chloride 96.3, albumin 3.6, creatinine 0.75, total protein 6.8, calcium 8.9, potassium 4.13, sodium 137, carbon dioxide 24, blood urea nitrogen 14, total bilirubin 0.5. IMAGES: CT of the head without contrast today from [facility] on the outside facility showed patchy low attenuation within the bilateral occipital lobes and the left cerebellar hemisphere. This finding is nonspecific and likely represent either posterior reversible encephalopathy syndrome or multiple acute infarcts. Brain MRI without and with IV contrast is recommended. ASSESSMENT AND PLAN: 1) Right upper extremity weakness and bilateral blurry vision: Likely secondary to acute ischemic cerebrovascular accident. Probably, is secondary due to metastasis from the history of ovarian cancer. However, will do CVA workups for more information. Will get speech and swallow evaluation. PT and OT. MRI of the brain with and without contrast. MRA of the brain. Carotid Doppler ultrasound of the neck. Transthoracic echo or JINNY depending on MRI brain's findings. If is widespread infarcts then embolic phenemenon could be considered and JINNY might be indicated. Will keep the blood pressure on the higher end in the setting of acute ischemic stroke. Currently, blood pressure is 130. I will give NS 1L bolus x1 over an hour then at 150 mL/h to keep the blood pressure on the higher side. No blood pressure control is needed unless SBP>220. Will get EKG. Put her on telemetry monitoring. Will check an A1c and lipid panel in AM. I will consult Neurology. I will also consult Hematology/Oncology given that she is currently on chemotherapy for her ovarian cancer. Aspirin 81mg po daily and lipitor 80mg po daily. Further plan depends on clinical course. 2) DVT prophylaxis: Will be on Lovenox subcu. Also, on compression devices. PATIENT'S NAME: PUSHPA [facility]USE [facility] AGE: 45 Y [address] ROOM: [place] [address] LOCATION: [facility] ADMIT DATE: 06/08/2016 History & Physical DISCHARGE DATE: FAMILY PHYSICIAN: PHYSICIAN, UNKNOWN ATTENDING PHYSICIAN: SIL ALMAZAN 3) Regarding her history of bilateral ovarian cancer status post total abdominal hysterectomy and bilateral salpingo-oophorectomy currently on chemotherapy: consult Hematology/Oncology. Time spent on the day of admission 40 minutes including chart review, examining the patient, interviewing the patient, addressing all the questions and concerns the patient and the patient's family members had at the bedside. I also went over the plan of care with the nurses and also with the patient and patient's family members. SIL ALMAZAN MD CC/modl /[id number] D: [id number] T: 423 HISTORY & PHYSICAL
[~2016-06-08 12:00] MED LIST: IBUPROFEN800 MG PO; NORCO 5-325 MG1 TAB PO; THERA-VITE W/ B1 TAB PO; YAZ 28 TABLET1 EACH PO
[2016-06-08] MEDS ORDERED: PROTONIX40 MG PO (14:12)
[2016-06-08] MEDS ORDERED: SENNA8.6 MG PO (14:13)
[2016-06-08] MEDS ORDERED: CLARITIN D 24HR1 TAB PO (14:13)
--- NOTE | 2016-06-08 14:13 | NUR ---
Pt is 45 y/o female admit for right sided weakness for hospitalist. Allergy to clindamycin-red and yellow bracelets on. Pt resides with at home. Pt has hx ovarian cancer and is currently receiving a fairly new chemo tx. PT alert and oriented x3 but has some blurry vision symptoms. Came from [place], [place] ED. 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 She went to the local ED and received some IV fluids and tx and was sent home. Her family reports her vision seemed to improve some over the weekend but last night she had a brief episode with some speech problems. Today her R)arm was weak and wouldn't work right. Went to [place], [place] ED and had CT scan, transfered here for higher level of care.
[2016-06-08] MEDS ORDERED: TYLENOL PM EX-1 EACH PO (14:15)
[2016-06-08] MEDS ORDERED: DOXIL2 MG/1 ML IV (14:15)
[2016-06-08 15:09] LABS: BASOPHIL % 0.3 %; EOSINOPHIL # 0.1 K/uL (0.0-0.5); EOSINOPHIL % 0.9 %; HEMATOCRIT 32.3 % (33.0-46.0); IMMATURE GRANULOCYTE # 0.1 K/uL (0.0-0.3); IMMATURE GRANULOCYTE % 0.6 %; LYMPHOCYTE # 0.9 K/uL (0.8-4.0); LYMPHOCYTE % 9.5 %; MCH 31.5 pg (27.0-34.0); MCHC 34.1 gm/dL (32.0-36.5); MCV 92.6 fl (83.0-98.0); MONOCYTE # 0.3 K/uL (0.0-1.0); MPV 11.1 fl (9.4-12.4); NEUTROPHIL # (ANC) 7.8 K/uL (1.8-7.8); NEUTROPHIL % 85.7 %; NRBC % 0 /100WBC (0-0.00); PLATELET COUNT 81 K/uL (150-450); RBC 3.49 M/uL (3.50-5.50); RDW-CV 11.6 % (11.9-14.6); WBC 9.1 K/uL (4.0-11.0)
[2016-06-08 15:19] LABS: INR - (THERAPEUTIC) 1.1 (0.9-1.1); PROTIME 11.6 SECONDS (9.6-11.1); PTT 27 SECONDS (25-32)
[2016-06-08 15:31] LABS: ALBUMIN 3.1 gm/dL (3.5-5.0); ALK PHOS 118 IU/L (33-138); ALT 81 IU/L (12-78); ANION GAP 13.3 (10.0-19.0); AST 54 IU/L (10-40); BLOOD UREA NITROGEN 14 mg/dL (6-24); CHLORIDE 100 mMol/L (96-110); CO2 28 mMol/L (22-32); CREATININE 0.8 mg/dL (0.5-1.1); ESTIMATED GFR (MDRD EQUATION) > 60; PHOSPHORUS 4.4 mg/dL (2.5-4.9); POTASSIUM 4.3 mMol/L (3.7-5.1); SODIUM 137 mMol/L (135-145); TOTAL BILIRUBIN 0.6 mg/dL (0.0-1.5); TOTAL PROTEIN 7.1 g/dL (6.0-8.4)
--- NOTE | 2016-06-08 15:31 | NUR ---
Significant Event: PT ARRIVED TO FLOOR FROM [place], [place] AT 1300. A/OX 3, SLOW TO RESPOND. FOLLOWS ALL COMMANDS, DENIES NUMBNESS/TINGLING. RT ARM REMAINS WEAK, MODERATE STRENGTH IN LOWER EXTREMITIES. DOES HAVE SOME BLURRY VISION AND PERIPHERAL VISION LOSS IN BOTH EYES. NO FACIAL DROOP. NOTED. PUPILS 4MM, BRISK. LUNGS CLEAR, ON ROOM AIR. VSS. IV IN RT A/C, NORMAL SALINE BOLUS STARTED THEN FLUIDS TO RUN AT 150MLS/HR. DENIES PAIN. WAS NAUSEATED UPON ARRIVAL BUT DENIES NOW. UP WITH 1 ASSIST AND GAITBELT. SPEECH HERE AND ASSESSED PATIENT, SWALLOW EVAL PASSED. PATIENT DOWN NOW FOR MRI. IS ALSO TO HAVE ECHO AND CAROTIDS. ALARMS ON FOR SAFETY. CONSULTS FOR ONCOLOGY, OPTHAMOLOGY, AND NEUROLOGY TO BE DONE. Follow up: ADMISSION ORDERS. ASSESS NEURO STATUS.
[2016-06-08 15:34] LABS: MAGNESIUM 2.2 mg/dL (1.3-2.6)
--- NOTE | 2016-06-08 15:37 | NUR ---
Received OT evaluation. OT attempted to see patient at 1530. Patient was gone at MRI at this time. Will plan to check back in a.m. 06/09. MARY Pat/Isabel
--- NOTE | 2016-06-08 16:21 | NUR ---
P.T. received orders for consult. Attempted to complete initial evaluation at 1530 and again at 1600 but pt was out of room for MRI on both attempts. Will plan to initiate P.T. in a.m. of 06/09. Mary Winters, PT, DPT 06/08/16
[2016-06-09 03:31] LABS: BASOPHIL % 0.3 %; EOSINOPHIL # 0.1 K/uL (0.0-0.5); EOSINOPHIL % 1.7 %; HEMATOCRIT 29.3 % (33.0-46.0); HEMOGLOBIN 9.9 g/dL (10.0-15.0); IMMATURE GRANULOCYTE # 0.1 K/uL (0.0-0.3); IMMATURE GRANULOCYTE % 0.7 %; LYMPHOCYTE # 1.1 K/uL (0.8-4.0); MCH 31.4 pg (27.0-34.0); MCHC 33.8 gm/dL (32.0-36.5); MONOCYTE # 0.3 K/uL (0.0-1.0); MONOCYTE % 3.6 %; MPV 11.3 fl (9.4-12.4); NEUTROPHIL # (ANC) 5.5 K/uL (1.8-7.8); NEUTROPHIL % 78.7 %; NRBC % 0 /100WBC (0-0.00); PLATELET COUNT 80 K/uL (150-450); RBC 3.15 M/uL (3.50-5.50); RDW-CV 11.8 % (11.9-14.6)
--- NOTE | 2016-06-09 04:22 | NUR ---
Significant Event: Patient is alert and oriented x3. Speech-slow to respond when asked a question. PERRLA. Right arm does have some effort against gravity- rest of the extremities are of moderate strength. PIV in right AV with NS @150. NPO since midnight. 1-2A with gait belt and walker. Family at bedside throughout the shift. SCDS on. Room air clear. Last BM 06/06- active x4. Accu checks q6h. Follow up: Possible JINNY in AM.
--- NOTE | 2016-06-09 10:49 | NUR ---
CONSULT FOR NUTRITION ED PER STROKE ORDERS NOTED. WILL COMPLETE IF APPROPRIATE.
--- NOTE | 2016-06-09 15:33 | NUR ---
Significant Event: Pt A&Ox3, speech is slow in response. PERRLA. Left peripheral vision impaired, c/o of blurriness in both eyes, Teargen ordered QID. Right arm does have some effort against gravity, with weak grasp of the hand upon command. Rest of extremities are of moderate strength. Right AC IV with NS infusing at 150ml/hr, IV continually kinked throughout shift, pt refuses a new IV start. 1A gaitbelt walker, pt moves slowly and at times can be unsteady on feet, denies dizziness. Pt is on a regular diet. Family at bedside throughout the shift. NIHSS of 5. Follow Up: Patient at [facility]NY from about 0930 to 1110, results unremarkable. Neuro status. NIHSS. Alarms for safety
--- NOTE | 2016-06-10 05:57 | NUR ---
Significant Event: Patient is alert and oriented x3. VSS. Slow verbal response. Pupils are 4mm and brisk. Denies N/T. Denies pain. Right arm weakness. Left and lower extremities moderate strength. Sinus rhythm. Room air-lungs are clear. AMB to bathroom with 1A gb and right arm sling-was incont twice this shift- now wearing a caden pad. PIV in right AC with NS at 150. Regular diet. Takes pills whole with iced tea. TEDS. Left peripheral vision is not intact. Schedule eye gtts and PRN q2h. Last BM-06/06. Follow up: Family at bedside majority of day. Monitor for BM.
--- NOTE | 2016-06-10 13:38 | NUR ---
Talked with charge nurse and with Dr Headley, they would like pt to go to [facility]. I called [facility] and they can take on Wednesday at 0900 if insurance approves rehab stay. Will work on precert.
--- NOTE | 2016-06-10 14:48 | NUR ---
Significant Event: A/O X3. PERRLA. Pupils 4BB. R) arm very weak with minimal movements. Delayed speech. Expressive aphasia. Flat affect. L) peripheral vision deficits. Moderate strength to bilateral legs and left arm. VSS. Room air with sats in the mid 90s. LS clear throughout. BS active X4. Voids per toilet. Regular diet. Hemisling to right arm. R) AC infusing with no complications.1 assist with gaitbelt and walker. Denies pain. Pills whole with water. Carotid angiogram today. Dressing to R) groin. Groin area soft to palpitation. Family at bedside. Pleasant and cooperative with cares. Follow up: GIRP?
--- NOTE | 2016-06-10 16:15 | NUR ---
Talked with Cherelle on [facility] and they can accept on Wednesday, I called [employer] [place] and initiated precert, they called me back and authorized rehab stay starting Saturday 06/10. Will put orders on chart and talk with patient and family and them know tomorrow. Called and left message for Cherelle with this information. Messaged her auth number and phone number to call.
--- NOTE | 2016-06-11 02:49 | NUR ---
Significant Event: Patient is alert and oriented x 3. Denies pain, numbness, or tingling. Moves spontaneously and follows commands except that right upper extremity cannot wiggle fingers or hand grasp. PERRL. 2+ pulses. Delayed speech and aphasic. Flat affect. A lot of family here prior to bed. Left peripheral vision deficits. States blurry vision is improving. VSS. On room air. Lungs clear. Max temp 99.3. Bowel sounds active. No BM this shift. Voids per restroom. 1PA, gait belt. IV to right AC infusing NS at 150 mL/hr. Regular diet. Hemisling to RUE PRN. Dressing to right groin from carotid angiogram today. C/D/I. Follow up: GIRP when ready?, NIHSS, monitor neuro status
[2016-06-11 06:18] LABS: ALBUMIN 2.5 gm/dL (3.5-5.0); ANION GAP 12.9 (10.0-19.0); BLOOD UREA NITROGEN 10 mg/dL (6-24); CALCIUM 7.9 mg/dL (8.5-10.5); CHLORIDE 106 mMol/L (96-110); CO2 24 mMol/L (22-32); CREATININE 0.8 mg/dL (0.5-1.1); ESTIMATED GFR (MDRD EQUATION) > 60; PHOSPHORUS 3.4 mg/dL (2.5-4.9); POTASSIUM 3.9 mMol/L (3.7-5.1); SODIUM 139 mMol/L (135-145)
--- NOTE | 2016-06-11 12:33 | NUR ---
Introduced self and care management services to patient and spouse and family at bedside. Discussed DC planning and recommendation for inpt rehab. Let them know insurance has approved inpt rehab stay and inpt rehab can accept tomorrow at 0900. They are okay with that plan. Will follow.
[2016-06-11 17:06] LABS: INR - (THERAPEUTIC) 1.2 (0.9-1.1); PROTIME 12.2 SECONDS (9.6-11.1)
--- NOTE | 2016-06-11 18:35 | NUR ---
Significant Event: a/o x 3. denies pain. denies numbness/tingling. NIHSS=5. No movement to right upper extremity hand but able to hold effort against gravity. also has left peripheral visual deficit. Sling to right arm when up. Tele with NSR. Room air. voids with no incontinent episodes. Scattered redness to back. DSG removed to right groin site with bruising to site. IV to right anticubital with normal saline infusing at 50ml/hr. ambulates with gait belt and one assist/SBA. New today- pulmonary emboli and blood clots in right lower extremity. New order for Lovenox to be initial dosed this evening. Port to left chest is not accessed and is not to be accessed per patient and family. Plan for GIRP on hold due to starting of Lovenox and need to monitor for adverse effects.
--- NOTE | 2016-06-12 04:42 | NUR ---
Significant Event: Patient is alert and oriented x3. VSS. PERRLA- 4mm and brisk. Denies PANDA. Denies N/T. Left peripheral vision not intact. Lower extremites & left upper extremity- moderate strength, right upper extremity weak. NSR. 1+ edema in the lower extremities and right arm. NIH-5. Portable tele. Room air-lungs are clear. Up with 1a to SBA with GB. Right AC with NS at 50. Sling to right arm when out of bed. 06/11 Venous doppler- drsg removed- right groin. Port in left chest not accessed. Last BM 06/06- Miralax given 06/11. Follow up: NON-contrast CT of head on 06/13.
--- NOTE | 2016-06-12 11:30 | NUR ---
Patient discharging to [facility] today.
--- NOTE | 2016-06-12 13:02 | NUR ---
Patient not discharging to [facility] today due to medical condition. Will dc to [facility] when medically stable.
--- NOTE | 2016-06-12 17:12 | NUR ---
Significant Event: a/o x 3. denies pain. denies numbness/tingling. left peripheral vision impairment is almost completely resolved. weakness to right hand but has weak hand grasp. NIHSS=2. Tele with NSR. Has two moderate bowel movements this shift and voids adequate amounts. Ambulates with gait belt and SBA. Gait steady. IV to right anticubial with normal saline infusing at 50ml/hr. Patient is receiving 70mg of lovenox BID and has blood clots in her lungs and right lower extremity. Patient did leave NTU and went to rehab floor for OT and PT. Did have slight bleeding when she blew her nose and some fatigue. Dr. Garcia and Dr. Pedraza both updated. New orders per Dr. Garcia to discontinue aspirin. Patient does have sling to right arm to wear when ambulating.
--- NOTE | 2016-06-13 03:58 | NUR ---
Significant Event: A/OX3. DENIES NUMBNESS AND TINGLING. DENIES PAIN. MOVES ALL EXTREMITIES SPONTANEOUSLY AND TO COMMAND. NIHSS STROKE SCALE = 2. RIGHT ARM WEAKNESS WITH DRIFT NOTED. LEFT PERIPHERAL VISION BLURRED. VSS ON ROOM AIR. UP TO BATHROOM SBA WITH GAIT BELT. 1 SMALL BM THIS SHIFT. IV TO RIGHT AC SALINE LOCKED. IN NSR, HEART RATE 80-90S. SBP IN 110S-130S. LUNGS CLEAR AND DIMINISHED. SLING TO RIGHT ARM WHEN UP. Follow up:
[2016-06-13 04:44] LABS: BASOPHIL % 0.3 %; EOSINOPHIL # 0.1 K/uL (0.0-0.5); EOSINOPHIL % 2.5 %; HEMATOCRIT 26.8 % (33.0-46.0); IMMATURE GRANULOCYTE % 0.5 %; LYMPHOCYTE # 1.1 K/uL (0.8-4.0); LYMPHOCYTE % 27.8 %; MCH 31.3 pg (27.0-34.0); MCHC 33.6 gm/dL (32.0-36.5); MCV 93.1 fl (83.0-98.0); MONOCYTE # 0.4 K/uL (0.0-1.0); MONOCYTE % 9.5 %; MPV 10.8 fl (9.4-12.4); NEUTROPHIL # (ANC) 2.4 K/uL (1.8-7.8); NEUTROPHIL % 59.4 %; NRBC % 0 /100WBC (0-0.00); PLATELET COUNT 128 K/uL (150-450); RBC 2.88 M/uL (3.50-5.50)
--- NOTE | 2016-06-13 19:47 | NUR ---
Significant Event: Patient alert and oriented x3. Denies numbness/tingling. R) arm weak with drift noted. R) hand grasp weak. Denies blurred peripheral vision at this time. Pupils 3mm, brisk. Tele on- NSR. VSS, on room air. Having loose stools today, miralax held. IV to R) AC, saline locked. No changes in patient condition throughout shift. Family at bedside. Follow up: VS/neuros q 4 hours. Up with SBA. Regular diet. Thoracentesis Wednesday, order to hold lovenox on Wednesday.
--- NOTE | 2016-06-14 04:41 | NUR ---
Significant Event: ASSUMED CARES FROM 0120 TO 0600. A/O. VERY WEAK ON R). FOLLOWS COMMANDS. VSS. RA. TEMP UP TO 99.2 THIS AM. DENIES PAIN. Follow up: CONTINUE TO MONITOR. TO HAVE U/S TO [facility] FOR THORACENTESIS.
[2016-06-14 05:24] LABS: BASOPHIL % 0.5 %; EOSINOPHIL # 0.1 K/uL (0.0-0.5); EOSINOPHIL % 2.1 %; HEMATOCRIT 27.1 % (33.0-46.0); HEMOGLOBIN 9.3 g/dL (10.0-15.0); IMMATURE GRANULOCYTE % 0.8 %; LYMPHOCYTE # 1.1 K/uL (0.8-4.0); LYMPHOCYTE % 29.8 %; MCH 31.7 pg (27.0-34.0); MCHC 34.3 gm/dL (32.0-36.5); MCV 92.5 fl (83.0-98.0); MONOCYTE # 0.4 K/uL (0.0-1.0); MONOCYTE % 10.2 %; MPV 10.9 fl (9.4-12.4); NEUTROPHIL # (ANC) 2.2 K/uL (1.8-7.8); NEUTROPHIL % 56.6 %; NRBC % 0 /100WBC (0-0.00); PLATELET COUNT 169 K/uL (150-450); RBC 2.93 M/uL (3.50-5.50); RDW-CV 12.4 % (11.9-14.6); WBC 3.8 K/uL (4.0-11.0)
[2016-06-14 05:36] LABS: ALBUMIN 2.7 gm/dL (3.5-5.0); ALK PHOS 92 IU/L (33-138); ALT 47 IU/L (12-78); ANION GAP 11.9 (10.0-19.0); AST 39 IU/L (10-40); BLOOD UREA NITROGEN 12 mg/dL (6-24); CALCIUM 8.5 mg/dL (8.5-10.5); CHLORIDE 104 mMol/L (96-110); CO2 26 mMol/L (22-32); CREATININE 0.8 mg/dL (0.5-1.1); ESTIMATED GFR (MDRD EQUATION) > 60; POTASSIUM 3.9 mMol/L (3.7-5.1); SODIUM 138 mMol/L (135-145); TOTAL PROTEIN 6.5 g/dL (6.0-8.4)
[2016-06-14 05:39] LABS: TOTAL BILIRUBIN 0.3 mg/dL (0.0-1.5)
--- NOTE | 2016-06-14 14:55 | NUR ---
Significant Event: Patient alert and oriented x3. Denies numbness/tingling. R) arm weak, but is stronger than yesterday. R) hand grasp very weak. Does report L) peripheral vision blurriness today. Pupils 3mm, brisk. Tele on- NSR. VSS, on room air. Voids per bathroom. Having loose stools, miralax held today. IV to R) AC, saline locked. Family at bedside. Follow up: VS/neuros q 4 hours. Up with SBA. Regular diet. Thoracentesis tomorrow.
--- NOTE | 2016-06-14 15:10 | NUR ---
A-SCREENED D/T LOS WEAKNESS TO R)SIDE. HX OF OAVARIAN CA; UNDERGOING CHEMO W/LAST TX BEING 06/04. RECENT DX OF PULMONARY EMBOLI AND BLODD CLOTS TO R)LOWER EXTREMITY; LOVENOX STARTED 1+ EDEMA TO BLE AND R)ARM THORACENTESIS PLANNED FOR 06/15 HT: 67 IN. WT: 70.4 KG BMI: 24.3 LABS: NA 138, K+ 3.9, GLU 101, BUN 12, ROOFER GYPSUM 0.8, ALB 2.7, CRP (06/09) 9.48 MEDS: ZOLOFT, PRN BOWEL MEDS, MIRALAX, PERCOCET, COMPAINE, LIPITOR, MVI, PROTONIX, ATIVAN DIET RX: REGULAR. PO INTAKE 0-100%; AVG OF 55% SINCE ADMIT. EST NUTR NEEDS: 2771-6922 KCALS (30-35 KCALS/KG) 70-92 GM PROTEIN (1.0-1.3 GM/KG) 1 ML FLUID/KCAL D-AT NUTRITION RISK W/INCREASED NUTRIENT NEEDS R/T CATABOLIC DZ AEB CA DX. I-ADD ENSURE ENLIVE QD AT [facility] M/E-GOAL: PO INTAKE >/=75% BY DISCHARGE 1)F/U PO INTAKE, SUPPLEMENT, AND POC IN 3-5 DAYS 2)ASSIST NEEDED
--- NOTE | 2016-06-15 04:55 | NUR ---
Significant Event: PATIENT IS ALERT AND ORIENTED X3. FLAT AFFECT BUT PLEASANT. RIGHT SIDED WEAKNESS, SOME APHAGIA, AND SOME VISION LOSS MAINLY ON THE LEFT. PATIENT DENISES PAIN THROUGHOUT. PLAN IS TO RECEIVE A THORACENTESIS THIS A.M. DUE TO PLEURAL EFFUSION TO THE LEFT. WILL NEED TO PREMEDICATE WITH ATIVAN PRIOR TO PROCEDURE. SBA. PATIENT WILL RECEIVE NEED LOVENOX THIS A.M. DUE TO THIS PROCEDURE. Follow up:
--- NOTE | 2016-06-15 12:21 | NUR ---
Reviewed chart, patient getting US for thoracentesis today. Talked with Kristen Cowart APRN and she said should be able to go to rehab anytime after that. Called Cherelle on [facility] and left her a voicemail to call me back. Waiting call back. Talked with Dr Headley, will see what therapy says, but she thinks is much improved and may do well with outpt therapies too. Will see what rehab says.
--- NOTE | 2016-06-15 16:06 | NUR ---
Significant Event: Alert & oriented. R) arm weakness. 1 assist, sling on when up. L) thoracentesis done today, dressing CDI. VSS, afebrile, room air. Pleasant & cooperative with cares. Follow up: Transfer to [facility] Wednesday or Wednesday per family
[2016-06-15 17:19] LABS: ALK PHOS 93 IU/L (33-138); ALT 52 IU/L (12-78); ANION GAP 14.1 (10.0-19.0); AST 38 IU/L (10-40); BLOOD UREA NITROGEN 10 mg/dL (6-24); CALCIUM 8.7 mg/dL (8.5-10.5); CHLORIDE 101 mMol/L (96-110); CO2 27 mMol/L (22-32); CREATININE 0.8 mg/dL (0.5-1.1); ESTIMATED GFR (MDRD EQUATION) > 60; POTASSIUM 4.1 mMol/L (3.7-5.1); SODIUM 138 mMol/L (135-145); TOTAL PROTEIN 6.9 g/dL (6.0-8.4)
[2016-06-15 17:33] LABS: TOTAL BILIRUBIN 0.4 mg/dL (0.0-1.5)
--- NOTE | 2016-06-16 03:36 | NUR ---
Significant Event: The patient is Alert and Oriented x3. Denies Numbness and Tingling. Moves all extremities spontaneously and to command. Right arm is weaker than her left. Denies Pain. NIHSS 4. Left Peripheral vision loss. VSS. On room air. Dressing to left upper/middle back C/D/I. Pupils are equal and reactive. PIV to the Right AC saline locked. Edema noted to bilateral legs 1+. On lovenox. Follow up:
--- NOTE | 2016-06-16 09:43 | NUR ---
Talked with Cherelle on [facility], they can accept pt tomorrow at 0900 if ready for rehab. I received a call from her medical insurance coder that wants to review therapy notes again so I faxed those to her to get auth for tomorrow for rehab.
--- NOTE | 2016-06-16 13:53 | NUR ---
Significant event: A&Ox3. CSM WNL. Flat affect. Lethargic. Has denied pain throughout shift. Moves extremities spontaneously and to command. Right arm is flaccid with some dependent edema. Pt wears a sling for the right arm. Ambulates with 1A GB. Lungs are clear in all pereira. RA. Bowel sounds active. Dressing to left upper back is clean, dry and intact. IV to right AC is saline locked. Flushes well with good blood return. Appetite has been poor. Calm and cooperative with cares.
--- NOTE | 2016-06-16 17:14 | NUR ---
Significant Event: NIHSS=4 for left visual deficit, right arm drift and ataxia in one limb.
--- NOTE | 2016-06-17 04:58 | NUR ---
SIGNIFICANT EVENT: PATIENT A/O X 3. PERRLA. LEFT PERIPHERAL VISION LOSS. DENIES N/T/HEADACHE/PAIN. MOVES ALL EXTREMITIES SPONTANEOUSLY AND TO COMMAND. RUE WEAKER THAN LEFT. LUNGS CLEAR ON ROOM AIR. AMBULATES SBA/1 ASSIST GB. VOIDS PER BATHROOM. PIV TO R) AC SL. DRESSING TO BACK C/D/I. CALM AND COOPERATIVE WITH CARES. RESTED WELL THIS SHIFT. FOLLOW UP: MEETING WITH ONCOLOGY AT 0800. HOSPITALIST TO SEE BEFORE TRANSFER TO [facility].
--- NOTE | 2016-06-17 08:35 | NUR ---
Significant Event: A/O x 3. denies pain. Continues to have left peripheral vision impairment and right upper extremity impairment. Denies numbness/tingling. Normal sinus rhythm. room air. Voids per bathroom. Continent of bowel and bladder. Skin- DSG to back from thoracentesis, bruising to right groin and scattered redness to upper back. On lovenox BID. IV to right forearm saline locked. Regular diet. Decreased appetite. Takes meds whole. Ambulates with SBA and gait belt. Sling to right arm when up. Mtg at this time with cancer center nurse regarding trial. Plan to transfer to [facility] at 0900 today. Patient's and mom at bedside.
== END 2016-06-17 09:55 | DRG 64 ==
LOC: GNTU 12:53
PROVIDERS: Internal Medicine; Internal Medicine Hematology & Oncology; Neurological Surgery; Specialist; ADMIT Internal Medicine
PROC: 0W9B3ZX Drainage of Left Pleural Cavity, Percutaneous Approach, Diagnostic (ICD-10-PCS; principal; 2016-06-15)
DX: I63.9 Cerebral infarction, unspecified (principal); I26.99 Other pulmonary embolism without acute cor pulmonale; J90 Pleural effusion, not elsewhere classified; D68.69 Other thrombophilia; C79.62 Secondary malignant neoplasm of left ovary; I82.401 Acute embolism and thrombosis of unspecified deep veins of right lower extremity; G81.91 Hemiplegia, unspecified affecting right dominant side; D69.6 Thrombocytopenia, unspecified; C56.1 Malignant neoplasm of right ovary; H53.462 Homonymous bilateral field defects, left side; Z79.82 Long term (current) use of aspirin; I10 Essential (primary) hypertension; Z92.21 Personal history of antineoplastic chemotherapy; Z90.710 Acquired absence of both cervix and uterus; D73.5 Infarction of spleen
CPT/HCPCS: A9577; C1760; C1769; C1887; C8929; J0780; J1644; J1650; J2060; J2250; J3010; J7030; Q9967

== ENCOUNTER 2016-06-17 10:05 | Inpatient (IN) | payer BC ==
[~2016-06-17] VITALS: Ht 170.2 cm; Wt 71.1 kg
--- NOTE | ~2016-06-17 | DS ---
PATIENT'S NAME: PUSHPA KRUSE [facility] AGE: 45 Y [address] ROOM: [address] [place], [place] [address] LOCATION: [facility] ADMIT DATE: 06/17/2016 Discharge Summary DISCHARGE DATE: FAMILY PHYSICIAN: Mague Moran MD ATTENDING PHYSICIAN: Karie Vera This 45-year-old lady was admitted to Rehab Unit at [place], [place] on 06/17/2016 and is discharged to home on 06/23/2016. 1. Unstable gait. 2. Dependent activities of daily self-care. 3. Status post right hemiplegia, secondary to CVA. She is at the present time alert and oriented. VITAL SIGNS: Blood pressure 107/82, temperature 98.1, pulse 88, and respirations 17. She is doing well. Able to ambulate 300 feet x2 with standby assistance and with little deviation; however, she has done markedly well, can go up to 450 feet with standby assistant finance manager modified independence. At the present time, she got well and good return on the right lower extremity; however, right upper extremity is still markedly weak, at best at a muscle strength of about 2+ to 3- with marked difficulty movement and some pain in the right shoulder. She is at the present time going to continue with PT, OT, and Speech. Outpatient script has been given to her. She is on the following medications: 1. Teargen dry eyes 4 times daily. 2. Aspirin 325 mg p.o. 3. Lipitor 80 mg p.o. daily. 4. Lovenox 80 mg give 70 mg twice daily subcu for 30 days and renewal with her family physician. 5. Theravite 1 tablet p.o. everyday. 6. Protonix 40 mg p.o. daily. 7. MiraLAX 17 g p.o. daily. 8. Zoloft 25 mg p.o. in the morning. 9. Tylenol 650 q.6 h., do not exceed acetaminophen 4 g q.24 h. FINAL DIAGNOSES: 1. Unstable gait. 2. Dependent activities of daily self-care. 3. Right hemiplegia, secondary to cerebrovascular accident, ischemic in character. PATIENT'S NAME: PUSHPA KRUSE [facility] AGE: 45 Y [address] ROOM: [address] [address] LOCATION: [facility] ADMIT DATE: 06/17/2016 Discharge Summary DISCHARGE DATE: FAMILY PHYSICIAN: Mague Moran MD ATTENDING PHYSICIAN: Karie Vera 4. History of cancer of ovary, status post total salpingo-oophorectomy plus radiation and chemotherapy with metastases. 5. Depression. 6. Dyslipidemia. 7. Deep vein thrombosis, bilateral lower extremities. 8. Reflux gastric disease. The patient is not to drive and/or operate any mechanical device. She is to avoid alcoholic beverage. She is given outpatient therapy, PT, OT, and Speech 3 times per week for the coming 4 weeks. I will see her thereafter. All the above was explained to her in detail. She verbalized understanding and agreement with plan of care. KARIE VERA MD WMS/modl /[id number] d: 06/23/16 0550 t: 06/23/16 1023, DISCHARGE SUMMARY
--- NOTE | ~2016-06-17 | HP ---
PATIENT'S NAME: PUSHPA KRUSE [facility] AGE: 45 Y [address] ROOM: [place] [address] LOCATION: [facility] ADMIT DATE: 06/17/2016 History & Physical DISCHARGE DATE: FAMILY PHYSICIAN: Mague Moran MD ATTENDING PHYSICIAN: Karie Hinojosa DATE OF SERVICE: This 45-year-old lady is admitted for continuous medical treatment and intensive rehabilitation. 1. Unstable gait. 2. Dependent activities of daily and self-care with right hemiplegia, right upper and lower extremity weakness and right upper extremity more involved with slow wording with voice and right-sided neglect and vision impairment on the right side more secondary to CVA. 3. She is at the present time alert and oriented. On admission, her vitals were as follows. Blood pressure 95/55, temperature 99, pulse 90, respiration rate 12, both regular. She stands 5 feet 7 inches and weighs 70.4 kg. She is allergic to clindamycin. She never had blood transfusion. (She has cholinesterase deficiency). At the present time, she is weak on the right side, right upper extremity more involved, and she has slight facial droop, that is improving with wording that come out slowly but definitely clear. She had initially marked neglect on the right side which has improved. Otherwise head normocephalic and she is not dizzy. No nausea, no vomiting. Voice is clear and not wet. Neck supple. Trachea is central. Chest moving equally and regular with respiration. Lungs are clinically clear. Heart regular sinus rhythm. Abdomen soft. She can move bilateral upper extremity, right upper extremity weaker, right lower extremity weaker; however, right upper extremity more involved. At this time, she is continent of her bowel and bladder. Important to mention here, she has recently bilateral calves DVT and is on treatment. Past history of significant CA ovary in October 2015, status post total hysterectomy and bilateral salpingo-oophorectomy for right ovary CA. PATIENT'S NAME: PUSHPA KRUSE [facility] AGE: 45 Y [address] ROOM: [place] [address] LOCATION: [facility] ADMIT DATE: 06/17/2016 History & Physical DISCHARGE DATE: FAMILY PHYSICIAN: Mague Moran MD ATTENDING PHYSICIAN: Karie Hinojosa Right forearm fracture in 1981. Left breast biopsy negative in 2004. She is now diagnosed with subacute ischemic infarcts cerebral and cerebellar left side leading to right-sided weakness. She is on the following medications. 1. Tear-Agan as directed four times daily as needed. 2. Aspirin 325 mg p.o. daily. 3. Lipitor 80 mg p.o. daily. 4. Theravite 1 tablet p.o. daily. 5. Protonix 40 mg p.o. daily. 6. MiraLAX 17 g p.o. daily. 7. Tylenol Extra Strength 500-1000 at bedtime p.r.n., do not exceed acetaminophen 4 g q.24 hours. 8. Benadryl 25 to 50 mg p.r.n. 9. Tylenol 650 q.6 hours, do not exceed acetaminophen 4 g q.24 hours. 10. Dulcolax suppository 10 mg rectally p.r.n. 11. Claritin 1 tablet p.o. daily. 12. MOM 30 mL as needed p.r.n. 13. Percocet 5/325 1-2 tablets p.o. q.4 hours, do not exceed acetaminophen 4 g q.24 hours. 14. Lovenox 1 mg subcu twice daily for hypercoagulability status. At the present time and 06/18, her blood work was as follows. CBC: White BC 5.0, RBC 3.17, hemoglobin 9.8, hematocrit 29.7, platelets 260. CMS: Sodium 139, potassium 4.1, chloride 101, CO2 28, BUN 16, creatinine 0.7, and glucose 104. UA, basically within normal limits. Prealbumin 11.0. She is able to ambulate at the present time, not steady, for 180 feet x2 with close standby assistance, slow velocity, multiple times, complaining being fatigued. At the present time, we will put her on intensive PT, OT, Speech 3 hours per day, at least 15 hours per week for the coming 3-4 weeks, aiming to discharge on modified independence. She is on regular diet at the present time and as tolerated. PATIENT'S NAME: PUSHPA KRUSE [facility] AGE: 45 Y [address] ROOM: [address] [address] LOCATION: [facility] ADMIT DATE: 06/17/2016 History & Physical DISCHARGE DATE: FAMILY PHYSICIAN: Mague Moran MD ATTENDING PHYSICIAN: Karie Hinojosa We will not apply TEDs and/or PlexiPulse. We will keep on hospitalist to follow, neurologist to follow, and Dr. Garcia to follow as necessary. All the above was explained to her in detail. She verbalized understanding and agreement. KARIE HINOJOSA MD WMS/modl /[id number] D: 352 T: 026 HISTORY & PHYSICAL
[~2016-06-17 10:05] MED LIST changes: +CLARITIN D 24HR1 TAB PO; +DOXIL2 MG/1 ML IV; +PROTONIX40 MG PO; +SENNA8.6 MG PO; +TYLENOL PM EX-1 EACH PO
--- NOTE | 2016-06-17 12:16 | NUR ---
0930 Call to Britany with Sarahy's insurance. Per Britany's VM, she is out of the office today and tomorrow. She did leave a number to call when she was out of the office, [phone], I phoned that number and left a VM on the machine re: Sarahy's information and wanting to know if her GIRP stay had been approved or not. 1000 I went up to the NTU floor to let them know that I still didn't have clearance from her insurance yet for her to go to [facility]IRP. ANUM Rosario informed me that they had already sent her over to GIR. 1005 Phoned over to C[facility]lle to let her know what had happened, she was going to talk with Althea about things and then get back with me. 1010 Call from Minal at [facility] letting me know that she did get the information and they were sending it to physician review to see if she actully needed [facility]IR[facility]. Informed her of all of the above and that Sarahy was already over there, asked that she call [facility] to get some more clinical information on her since I had just taken on this case so I wasn't the best person when it came to updating her on Sarahy's needs. 1040 Cherelle and Minal did connect per Minal, she states that they are going to approve Sarahy to go to [facility] starting today, with an update due on Wednesday. Per Minal, Britany will be the person reviewing the case her phone number is [phone], fax [phone], auth # [id number]. I left VM on Cherelle's phone with all the above information so she knew that clinical update was due on Wednesday with insurance for continued stay. Will continue to follow and assist.
--- NOTE | 2016-06-17 16:55 | NUR ---
Significant Event:PATIENT ADMITTED TO ROOM 3296-1 FROM U THIS AM AT 0955 VIA WHEELCHAIR. WAS TEARFUL DURING THE ADMISSION PROCESS. VSS. GETS HYPOTENSIVE AT TIMES. HAD A CVA AND HAS A HX OF OVARIAN CANCER. HAS A LEFT PERIPHERAL NEGLECT AND RIGHT ARM WEAKER. WEARS A SLING ON THE RIGHT ARM. IS ABLE TO MOVE BUT MUCH WEAKER THAN THE LEFT. FAMILY VERY SUPPORTIVE. DENIES PAIN. UA NEEDED YET AT THIS TIME. DID HAVE A BM TODAY. SKIN INTACT. DOES HAVE SOME REDNESS TO UPPER BACK WHICH HAS BEEN THERE. OTHERWISE HAS SOME BRUISING TO THE RIGHT GROIN. TRANSFERS WITH 1 SBA AND GAIT BELT. IS VERY STEADY. HAS HAD A POOR APPETITE. FAMILY BRINGS HER IN SOME FOOD AT TIMES TO GIVE HER SOME VARIETY AND ALSO BRINGS IN STRAWBERRY BOOST TO DRINK. NO OTHER COMPLAINTS. Follow up:
[2016-06-17 19:46] LABS: BILIRUBIN URINE NEGATIVE (NEGATIVE); BLOOD URINE NEGATIVE /UL (NEGATIVE); COLOR URINE YELLOW (YELLOW); GLUCOSE URINE NEGATIVE (NEGATIVE); KETONE URINE NEGATIVE (NEGATIVE); LEUKOCYTES URINE 100 /UL (NEGATIVE); NITRITE URINE NEGATIVE (NEGATIVE); PH URINE 6.5 (4.0-8.0); PROTEIN URINE NEGATIVE (NEGATIVE); TURBIDITY URINE CLEAR (CLEAR); UROBILINOGEN URINE 1 mg/dL (NORMAL)
[2016-06-17 19:54] LABS: RBC URINE NEGATIVE #/HPF (NEGATIVE)
[2016-06-17 19:55] LABS: BACTERIA URINE FEW (NEGATIVE)
--- NOTE | 2016-06-18 04:05 | NUR ---
A/O x 3. OOB in WC for dinner with family in the dining room. Pleasant. Cooperative. Stand by assist for ambulation. R side weakness. Slow response time for questions. C/O being tired tonight. Request to go to bed early. Continent of B/B. Rested well.
[2016-06-18 05:52] LABS: BASOPHIL % 0.4 %; EOSINOPHIL # 0.1 K/uL (0.0-0.5); EOSINOPHIL % 1.2 %; HEMATOCRIT 29.7 % (33.0-46.0); HEMOGLOBIN 9.8 g/dL (10.0-15.0); IMMATURE GRANULOCYTE # 0.1 K/uL (0.0-0.3); IMMATURE GRANULOCYTE % 1.8 %; LYMPHOCYTE # 1.4 K/uL (0.8-4.0); LYMPHOCYTE % 28.6 %; MCH 30.9 pg (27.0-34.0); MCV 93.7 fl (83.0-98.0); MONOCYTE # 0.9 K/uL (0.0-1.0); MONOCYTE % 16.9 %; MPV 10.2 fl (9.4-12.4); NEUTROPHIL # (ANC) 2.6 K/uL (1.8-7.8); NEUTROPHIL % 51.1 %; NRBC % 0 /100WBC (0-0.00); RBC 3.17 M/uL (3.50-5.50); RDW-CV 12.9 % (11.9-14.6)
[2016-06-18 05:53] LABS: PLATELET COUNT 263 K/uL (150-450)
[2016-06-18 06:07] LABS: ALBUMIN 2.9 gm/dL (3.5-5.0); ALK PHOS 95 IU/L (33-138); ALT 43 IU/L (12-78); ANION GAP 14.1 (10.0-19.0); AST 31 IU/L (10-40); BLOOD UREA NITROGEN 16 mg/dL (6-24); CHLORIDE 101 mMol/L (96-110); CO2 28 mMol/L (22-32); CREATININE 0.7 mg/dL (0.5-1.1); ESTIMATED GFR (MDRD EQUATION) > 60; POTASSIUM 4.1 mMol/L (3.7-5.1); SODIUM 139 mMol/L (135-145); TOTAL PROTEIN 6.9 g/dL (6.0-8.4)
[2016-06-18 06:10] LABS: TOTAL BILIRUBIN 0.3 mg/dL (0.0-1.5)
--- NOTE | 2016-06-18 14:36 | NUR ---
Significant Event:PATIENT ALERT AND ORIENTED THIS SHIFT. VSS. TRANSFERS WITH 1 SBA AND GAIT BELT. HAS DENIED PAIN TODAY. GETS TIRED EASILY. MOTHER AT BEDSIDE ALL DAY. RESTS IN RECLINER WHEN NOT IN THERAPY AND HAS EATEN MEALS IN THE DINING ROOM. NO OTHER COMPLAINTS. Follow up:
--- NOTE | 2016-06-19 03:48 | NUR ---
A/O x 3. Pleasant. Cooperative. Family visiting until 2129. Medicated with Tylenol at . Stand by asssit. Continent of B/B. Rested well.
--- NOTE | 2016-06-19 13:57 | NUR ---
Significant Event: Patient is alert/oriented X 3. Has been sleepy this afternoon. Restarted her on zoloft. This was started on acute, but didn't get started here. First dose given. Patient eating decently, does need some encouragement to keep going to get stronger at times. Mother is very encouraging to her. No PRNs given, no complaints of pain. Made Mod I in room by therapy today. Follow up:
--- NOTE | 2016-06-20 04:11 | NUR ---
Significant Event: Patient alert and oriented. Mod I in room. Has support from her Mother and Significant other, Prince. Patient on lovenox shot BID, family needs reteaching on how to waste and give shot before patient leaves. Significant other was in room this evening when shot was recieved and did ask some questions. Denies pain. Right side slightly weaker than Left. Cooperative with cares. Follow up:
--- NOTE | 2016-06-20 14:22 | NUR ---
Significant Event:PATIENT ALERT AND ORIENTED THIS SHIFT. VSS. TRANSFERS INDEPENDANTLY. HAS HAD LOTS OF VISITORS TODAY. SHOWERED THIS AM PRIOR TO BREAKFAST AND TOLERATED WELL. ATE MEALS IN THE DINING ROOM. HAS DENIED PAIN. RESTS IN RECLINER MOST OF THE DAY. NO OTHER COMPLAINTS TODAY. Follow up:
--- NOTE | 2016-06-21 04:29 | NUR ---
Significant Event: Patient alert and oriented. Up Mod I in room. Lots of visitors this evening. Ate dinner with significant other and family. VSS. Took a tylenol at bedtime. Was up in recliner for most of the evening watching a game with family members. Cooperative with cares. Follow up:
--- NOTE | 2016-06-21 14:17 | NUR ---
Significant Event: Alert and oriented x 3. Up ad azra in room. Denies pain. Showered this morning with help of her mom. Family present throughout the shift. Cooperative with cares. Uses call light appropriately. Follow up:
--- NOTE | 2016-06-22 03:29 | NUR ---
A/O x 3. Pleasant. Cooperative. Family and friends visiting until 2044. Patient in good spirits. Plan to go home this June 23. Continent of B/B. Tolerating meals well. Stand by assist. Rested very well.
--- NOTE | 2016-06-22 13:06 | NUR ---
A-SCREENED D/T LOS; NEW ADMIT TO [facility] S/P CVA W/R)SIDED WEAKNESS. HX OF OVARIAN CA DX IN 10/2015; UNDERGOING CHEMO HT: 67 IN. WT: 71.1 KG. BMI: 24.3 LABS: NA 139, K+ 4.1, GLU 104, BUN 16, PAINTER TUMBLING BARREL 0.7, ALB 2.9, PREALB 11.0 MEDS: ZOLOFT, MIRALAX, PRN BOWEL MEDS, MVI, PERCOCET DIET RX: REGULAR. FAMILY DOES BRING IN OTHER FOOD AT TIMES, ALONG WITH STRAWBERRY BOOST. PO INTAKE 75-100% EST NUTR NEEDS: 0214-2970 KCALS (25-30 KCALS/KG) 71-85 GM PROTEIN (1.0-1.2 GM/KG) 1 ML FLUID/KCAL D-AT NUTRITION RISK W/INCREASED NUTRIENT NEEDS R/T CATABOLIC DZ AEB DX. I-FAMILY BRINGING IN STRAWBERRY BOOST FOR PT PLAN IS FOR PT TO BE D/C June M/E-GOAL: PO INTAKE >/=75% FOR DURATION OF ADMIT 1)F/U PO INTAKE, WT, LABS, AND POC IN 4-6 DAYS 2)ASSIST NEEDED
--- NOTE | 2016-06-22 14:32 | NUR ---
Significant Event: PATIENT UP AD HUEY. COOPERATIVE WITH CARES. MOM AT BEDSIDE, VERY HELPFUL. VITALS STABLE ON ROOM AIR. ALERT AND ORIENTED X3. WILL GO HOME TOMORROW, PLEASE INSTRUCT ON LOVENOX USE DURING THE PM DOSE. DENIES PAIN. TOLERATES DIET WELL. CONTINENT OF BOWEL AND BLADDER. Follow up:
--- NOTE | 2016-06-22 14:40 | NUR ---
Late entry for 06-17-16 8:00 am. Per the request of Dr. Garcia discussed clinical trial [id number] with this patient, Prince Lerner and her mother Jose Roth. Prior to discussion discussed an overview of clinial trials utilizing the NCI booklet "Taking Part of Cancer Treatment Trials" We also discussed tissue collection in a clincal trial. The Consent form is reveiwed thoroughly with this patient and her family. All questions are answered to their satisfaction. This patient signs her consent form with her left hand. She does voice understanding and is able to verbalize the content of the study. Her significant other Prince Lerner co-signs the consent form. A copy is made and given to the patient. The Release of Information Forms are signed. Did discus insurance approval for a clinical trial. She would like to proceed with insurance pre-authorization. With all quesitions answered will proceed with enrollement in to the [id number] MATCH trial. Britany Daily RN,BSN,OCN,CCRP
[2016-06-22] MEDS ORDERED: MIRALAX17 GM PO (14:57)
[2016-06-22] MEDS ORDERED: ZOLOFT25 MG PO (14:58)
[2016-06-22] MEDS ORDERED: ARTIFICIAL TEAR15 ML OPHTH (15:03)
[2016-06-22] MEDS ORDERED: ASPIRIN325 MG PO (15:05)
[2016-06-22] MEDS ORDERED: LIPITOR80 MG PO (15:07)
[2016-06-22] MEDS ORDERED: LOVENOX 8080 MG/0.8 SUB-Q (15:07)
[2016-06-22] MEDS ORDERED: TYLENOL325 MG PO (15:09)
--- NOTE | 2016-06-23 03:04 | NUR ---
Significant Event: Patient alert and oriented. up independent. Mom here until night assisting with cares. Denied pain. Right upper extremity weakness. Vitals stable on room air. Denied any needs throughout the night. Follow up: home today
--- NOTE | 2016-06-23 11:12 | NUR ---
Significant Event:PATIENT ALERT AND ORIENTED THIS SHIFT. VSS. TRANSFERS WITH 1 ASSIST, GAIT BELT AND INDEPENDANT. MOTHER AT BEDSIDE. READY FOR DISCHARGE TO HOME. INSTRUCTIONS REVIEWED WITH PATIENT AND MOTHER. VERBALIZES UNDERSTANDING AND COPY OF INSTRUCTIONS GIVEN TO PATIENT. DC TO HOME WITH MOTHER VIA WHEELCHAIR TO FRONT ENTRANCE. NO COMPLAINTS. ALL BELONGINGS SENT WITH PATIENT. Follow up:
--- NOTE | 2016-06-24 15:42 | NUR ---
Post hospitalization follow up call made to patient. She reports that she is doing well. No questions concerning her follow up appointments or her medications. Feels that hospital stay went well.
--- NOTE | 2016-06-25 10:07 | NUR ---
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 I: Input from: patient, family, Zenaida Ruffin RN and Cherelle HERNANDEZW R: Reason for admission: CVA with right sided weakness. Multifocal infarcts bilaterally in cerebral and cerebellar hemispheres. Hx of PE and hx of ovarian cancer. Admission Date to [facility]: 06/17/16 Admission Date to Hospital: 06/08/16 Prior level of functioning: patient was independent with adl's and household prior to CVA. Prior living situation: one story house Financial resources/expectations: patient has BC/BS. All days approved. Resources used: shower chair. Resources available: HHC, outpatient therapy, SNF, INTERMEDIATE, [facility], DME. 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 Monitor for signs and symptoms of depression and anxiety. Legal concerns: none. Discharge goal: home with support. Assessment: Sarahy is a 45 year old woman from [place] admitted after a stroke. She has good family support. Plan is to d/c on 06/23/16 with outpatient therapy. Patient's appointsments for therapy were set up through [facility]. No need for durable medical equipment at this time. Will call patient next week to see how she is doing post discharge. Will follow. Orientation to the program and CM services completed with Sarahy. Initial plan of care and estimated length of stay discussed, disclosure statement reviewed including patient assessment rights. P: Target date and individual goals established. Please see POC for details. For additional information please see Nursing Data Base, PT, OT, TR, ST, Initial assessments to [facility].
== END 2016-06-23 09:55 | disposition disaster alternative care site (69) | DRG 57 ==
LOC: GIRP 10:05
PROVIDERS: ADMIT Physical Medicine & Rehabilitation
DX: I69.351 Hemiplegia and hemiparesis following cerebral infarction affecting right dominant side (principal); J90 Pleural effusion, not elsewhere classified; D68.59 Other primary thrombophilia; D69.6 Thrombocytopenia, unspecified; I82.4Z3 Acute embolism and thrombosis of unspecified deep veins of distal lower extremity, bilateral; I69.398 Other sequelae of cerebral infarction; H53.9 Unspecified visual disturbance; R47.89 Other speech disturbances; R26.9 Unspecified abnormalities of gait and mobility; E53.8 Deficiency of other specified B group vitamins; Z85.43 Personal history of malignant neoplasm of ovary; Z79.82 Long term (current) use of aspirin; F32.9 Major depressive disorder, single episode, unspecified; E78.5 Hyperlipidemia, unspecified; K21.9 Gastro-esophageal reflux disease without esophagitis; Z92.3 Personal history of irradiation; Z92.21 Personal history of antineoplastic chemotherapy; G47.00 Insomnia, unspecified; M25.511 Pain in right shoulder; Z86.711 Personal history of pulmonary embolism; Z79.01 Long term (current) use of anticoagulants
CPT/HCPCS: J1650

== ENCOUNTER → 2016-07-02 | Outpatient (CLI) | payer BC ==
[~2016-07-02] MED LIST changes: +ARTIFICIAL TEAR15 ML OPHTH; +ASPIRIN325 MG PO; +LIPITOR80 MG PO; +LOVENOX 8080 MG/0.8 SUB-Q; +MIRALAX17 GM PO; +TYLENOL325 MG PO; +ZOLOFT25 MG PO
== END | disposition disaster alternative care site (69) ==
LOC: GOPD 07-01 14:00
PROC: 0W9G3ZZ Drainage of Peritoneal Cavity, Percutaneous Approach (ICD-10-PCS; principal; 2016-07-02)
DX: I69.151 Hemiplegia and hemiparesis following nontraumatic intracerebral hemorrhage affecting right dominant side (principal); C56.1 Malignant neoplasm of right ovary

== ENCOUNTER 2016-07-12 09:50 | Emergency (ER) | payer BC ==
--- NOTE | ~2016-07-12 | ER ---
PATIENT'S NAME: PUSHPA KRUSE [facility] AGE: 46 Y [address] ROOM: [place] [address] LOCATION: [facility] ADMIT DATE: 07/12/2016 ER/Outpatient Report DISCHARGE DATE: 07/12/2016 FAMILY PHYSICIAN: Mague Moran MD ATTENDING PHYSICIAN: Veronica Anton Time of Arrival: 0950 hours. Time of Evaluation: 0955 hours. IDENTIFICATION: A 46-year-old female. CHIEF COMPLAINT: Back pain and abdominal pain. 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 She was diagnosed in October of 2015. She is currently on chemotherapy, but that apparently has been put on hold. She has increasing abdominal distention. She had a therapeutic paracentesis on July 02. She has had increasing distention and discomfort and just could not get comfortable. They talked with Dr. Garcia who recommended that they have to come in this weekend rather than Wednesday for their scheduled paracentesis if she has increase in pain. Today, she is actually feeling a little bit better; does have some low back pain and some just generalized abdominal discomfort. No fever or chills. Decreased appetite. Nausea, vomiting, and then last Wednesday, she had diarrhea. Her last bowel movement was on Wednesday. She does struggle with constipation with her pain meds. ALLERGIES: TO CLEOCIN. CURRENT MEDICATIONS: 1. Lovenox 70 mg b.i.d. subcu. 2. Zofran p.r.n. 3. Lipitor 80 mg daily. 4. Zoloft 25 mg daily. 5. Aspirin 325 mg daily. 6. Multivitamin daily. 7. Protonix 40 mg daily. 8. Senokot p.r.n. 9. Tylenol p.r.n. PATIENT'S NAME: PUSHPA KRUSE [facility] AGE: 46 Y [address] ROOM: [place] [address] LOCATION: [facility] ADMIT DATE: 07/12/2016 ER/Outpatient Report DISCHARGE DATE: 07/12/2016 FAMILY PHYSICIAN: Mague Moran MD ATTENDING PHYSICIAN: Vreonica Anton MEDICAL PROBLEMS: 1. Right ovarian cancer with metastasis. 2. CVA in June of 2016, on chronic anticoagulation with Lovenox. We did hold the Lovenox for the anticipated paracentesis last night and this morning. They also held her aspirin today. 3. Hypercoagulable state secondary to ovarian cancer and positive antiphospholipid antibody. 4. Pulmonary embolism. 5. Right lower extremity DVT. 6. Left pleural effusion. 7. Thrombocytopenia. PRIOR SURGERIES: Bilateral salpingo-oophorectomy, left upper chest port, and hysterectomy. FAMILY HISTORY: Mother with hypertension. Father with heart problems and diabetes. No family history of ovarian cancer. SOCIAL HISTORY: The patient is from [place], [place]. She is . Her primary care physician is Dr. Moran in [place]. Dr. Garcia and Dr. Cosme are her oncologists that have been following along. REVIEW OF SYSTEMS: All systems reviewed and negative other than what is noted in the HPI. PHYSICAL EXAMINATION: VITAL SIGNS: Weight 65.6 kg. Blood pressure 132/89, pulse 108, respirations 16, temperature 97.2, and saturations 98%. GENERAL: A pale 46-year-old female, in mild distress secondary to the distention. HEENT: Unremarkable. LUNGS: Clear to auscultation. HEART: Sinus tachycardia, which did improve prior to discharge to 81. ABDOMEN: Distended abdomen, minimally tender to deep palpation. She does have a fluid wave. BACK: She has no palpable back pain, but she is complaining of low back pain, but nothing I can reproduce on examination. NEURO: No focal deficit at this time. EMERGENCY DEPARTMENT COURSE: We did have a lab workdone showing: UA: Specific gravity 1.025, pH 5.0, leukocytes positive, nitrites negative, 20 to 50 white cells, rare red cells, PATIENT'S NAME: PUSHPA KRUSE [facility] AGE: 46 Y [address] ROOM: [place], [place] [address] LOCATION: ED ADMIT DATE: 07/12/2016 ER/Outpatient Report DISCHARGE DATE: 07/12/2016 FAMILY PHYSICIAN: Mague Moran MD ATTENDING PHYSICIAN: Veronica Anton 2 to 5 epithelial cells, rare bacteria. Culture and sensitivity are pending. Procalcitonin mildly elevated at 0.2. White count 12.9 with 70% neutrophils, no bands. INR 1.1. Sodium 131, potassium 4.0, chloride 91, CO2 of 25, BUN 18, creatinine 0.8, blood sugar 114. Liver enzymes normal. Amylase 31, lipase 119. Ultrasound of her abdomen did reveal some ascites. Dr. Izquierdo agreed to go ahead. I think Dr. Garcia had already called him to go ahead with therapeutic/diagnostic paracentesis. She had almost 3 L of fluid removed from her abdomen by Dr. Izquierdo without complication. The fluid was sent for Gram stain, culture and sensitivity, and cell count. Gram stain: Few white blood cells, bacteria not observed. Cell count: 7000 red blood cells, 744 white blood cells. Preliminary culture set up. The patient remained afebrile; felt much better; had no pain. The patient was observed per the radiologist's recommendations here in the ER. IMPRESSION AND PLAN: 1. Urinary tract infection. 2. Ascites. 3. Metastatic ovarian cancer. Bactrim DS b.i.d. for 3 days. Follow up with Dr. Cosme for culture results, urine and abdominal fluid in 1 day. Continue all other current medications. Resume her Lovenox. The patient and her understand and agree, and all questions have been answered. VERONICA ANTON MD CAR/modl /[id number] d: 07/13/16901 t: 07/14/16 1427, OUTPATIENT REPORT
[2016-07-12 10:38] LABS: BASOPHIL % 0.3 %; EOSINOPHIL % 0.3 %; HEMOGLOBIN 11.8 g/dL (10.0-15.0); IMMATURE GRANULOCYTE # 0.5 K/uL (0.0-0.3); IMMATURE GRANULOCYTE % 3.7 %; LYMPHOCYTE # 1.6 K/uL (0.8-4.0); LYMPHOCYTE % 12.1 %; MONOCYTE # 1.7 K/uL (0.0-1.0); MONOCYTE % 13.2 %; MPV 9.8 fl (9.4-12.4); NEUTROPHIL # (ANC) 9.1 K/uL (1.8-7.8); NEUTROPHIL % 70.4 %; NRBC % 0 /100WBC (0-0.00); RDW-CV 14.8 % (11.9-14.6); WBC 12.9 K/uL (4.0-11.0)
[2016-07-12 10:40] LABS: HEMATOCRIT 35.9 % (33.0-46.0); MCH 28.7 pg (27.0-34.0); MCHC 32.9 gm/dL (32.0-36.5); MCV 87.3 fl (83.0-98.0); PLATELET COUNT 470 K/uL (150-450); RBC 4.11 M/uL (3.50-5.50)
[2016-07-12 10:45] LABS: BLOOD URINE 10 /UL (NEGATIVE); COLOR URINE AMBER (YELLOW); GLUCOSE URINE NEGATIVE (NEGATIVE); KETONE URINE 50 mg/dL (NEGATIVE); LEUKOCYTES URINE 500 /UL (NEGATIVE); NITRITE URINE NEGATIVE (NEGATIVE); PROTEIN URINE 30 mg/dL (NEGATIVE); SPEC GRAVITY URINE 1.025 (1.003-1.035); TURBIDITY URINE 1+ (CLEAR); UROBILINOGEN URINE 8 mg/dL (NORMAL)
[2016-07-12 10:47] LABS: INR - (THERAPEUTIC) 1.1 (0.9-1.1); PROTIME 11.4 SECONDS (9.6-11.1); PTT 28 SECONDS (25-32)
[2016-07-12 10:51] LABS: BACTERIA URINE RARE (NEGATIVE); RBC URINE RARE #/HPF (NEGATIVE); WBC URINE 20-50 #/HPF (NEGATIVE)
[2016-07-12 10:54] LABS: ALBUMIN 2.4 gm/dL (3.5-5.0); ALK PHOS 128 IU/L (33-138); ALT 35 IU/L (12-78); AST 26 IU/L (10-40); BLOOD UREA NITROGEN 18 mg/dL (6-24); CALCIUM 9.2 mg/dL (8.5-10.5); CHLORIDE 91 mMol/L (96-110); CO2 25 mMol/L (22-32); CREATININE 0.8 mg/dL (0.5-1.1); ESTIMATED GFR (MDRD EQUATION) > 60; SODIUM 131 mMol/L (135-145); TOTAL PROTEIN 7.3 g/dL (6.0-8.4)
[2016-07-12 11:00] LABS: TOTAL BILIRUBIN 0.7 mg/dL (0.0-1.5)
[2016-07-12 13:19] LABS: PERITONEAL FLUID TURBIDITY 2+ (CLEAR)
[2016-07-12 13:55] LABS: % PERITONEAL FLUID NEUT 10 % (0-25)
[2016-07-12 13:56] LABS: % PERITONEAL FLUID MESO 1 % (0-0); % PERITONEAL FLUID MONO/MACRO 51 % (0-0)
== END 2016-07-12 12:55 | disposition disaster alternative care site (69) ==
LOC: GMED 09:50
PROVIDERS: Family Medicine
PROC: 0W9G3ZZ Drainage of Peritoneal Cavity, Percutaneous Approach (ICD-10-PCS; principal; 2016-07-12)
DX: N39.0 Urinary tract infection, site not specified (principal); R18.8 Other ascites; C56.1 Malignant neoplasm of right ovary; C79.62 Secondary malignant neoplasm of left ovary; Z79.82 Long term (current) use of aspirin; Z79.899 Other long term (current) drug therapy; I10 Essential (primary) hypertension
CPT/HCPCS: J2060